=== PATIENT | male | born 1995 | race Caucasian/White ===

== ENCOUNTER → 2020-10-31 13:25 | Outpatient (CLI) | payer OTHER, SELFPAY ==
[2020-10-31 13:55] LABS: COVID19 -Nasal RAPID Negative (Negative)
== END ==
PROVIDERS: PCP Family Medicine; Visit Provider Surgery
DX: Z20.822 Contact with and (suspected) exposure to COVID-19 (principal)
CPT/HCPCS: 87635

== ENCOUNTER 2020-10-31 16:18 | Day surgery (SDC) | payer OTHER, SELFPAY ==
[2020-10-31] VITALS (8 sets, daily range): BP systolic 108–125; BP diastolic 63–84; PULSE 81–98; RESP 14–20; TEMP 36.9–37.8; O2SAT 96–100; BMI 26.4
[2020-10-31] MEDS: LACTATED RINGERS 1,000 ML 42 ML IV (17:08)
--- NOTE | 2020-10-31 17:17 | PM.PREOP ---
Pre-operative Note COVID-19 COVID-19 status: Negative Result date/Date tested (Pos, Neg/Pending): 10/31/20 Interval Note History & Physical reviewed/Exam performed by Physician: Yes Changes to H&P: No
[2020-10-31] MEDS: CLINDAMYCIN 900 MG/50 ML PIGGYBACK 50 MG IV (17:35)
--- NOTE | 2020-10-31 17:58 | SUR.OPER ---
Prone on padded OR bed, head in foam head support, gel chest rolls, gel pad under knees, pillow under lower legs, toes free of pressure, arms secured on padded arm boards at <90 degrees abduction. Safety belt at thigh.
[2020-10-31] MEDS: BUPIVACAINE 0.25% W/ EPI (PF) 10 ML VIAL 20 ML INJ (18:08)
[2020-10-31] MEDS: BUPIVACAINE LIPOSOME 266 MG/20 ML VIAL INJ (18:08)
--- NOTE | 2020-10-31 18:36 | PM.OP.1 ---
Operative Date/Time/Diagnoses Date of procedure: 10/31/20 Time of procedure: 18:36 Pre-op diagnosis: pilonidal cyst with abscess Post-op diagnosis: same (5cm x 8cm x 5cm abscess cavity) Procedure & Clinicians Procedure: Pilonidal cyst excision and debridement, sharp excisional debridement with currette of 5cm x 8cm x 5cm cavity Same procedure as scheduled: Yes Indications: Severe pain, swelling and incomplete drainage of pilonidal cyst with abscess Surgeon: Edna Celis Click Yes if Unassisted: Yes Anesthesia Type: General Operative Notes Findings: 15 x 20cm area of induration involving both buttocks, with central area of pilonidal cyst with 5cm x 8 cm x 5cm area of abscess in the sacrococcygeal midline with purulence and chronic granulation Specimen(s): none sent Estimated Blood Loss (mL): 50 Procedure in detail: The patient was brought into the OR. Sequential compression devices were placed on both legs and turned on. Appropriate perioperative antibiotics were given. General anesthesia was induced and the patient was intubated. The patient was turned prone onto the OR table. All bony prominences were padded. The perianal area was prepped and draped in sterile fashion with betadine prep. Surgical timeout was conducted. A large 15 x 20 cm area of firm induration involving both buttocks, with central area of skin discoloration and fluctuance consistent with pilonidal cyst was seen, with a central open wound consistent with a pilonidal sinus. 0.25% Marcaine with epi was used to infiltrate the entire area. A 6mm biopsy punch was used to core out the open pit and one pit superior to that one. Through these two openings we debrided and irrigated out a large abscess cavity which was about 5cm x 8cm x 5cm beneath the skin. The cyst cavity beneath the skin debrided using curettes, 4 x 4 gauze, and saline irrigation. Hair, pus, and chronic inflammatory granulation tissue was removed, until the cavity was clean. The surgical site was infiltrated with an additional 20 mL of 0.25% Marcaine with epi for a total of 30 mL for the case. 20 mL of Exparel used to infiltrate the surgical wound. The entire wound was then packed with a full 5 yards of quarter-inch iodoform gauze, in 1 long strip. A tail of gauze was left between the two pits. There was good hemostasis at this point. The remaining Betadine was washed off of the skin. A stack of 4x4 gauze was then used to cover the surgical site and secured in place with medipore tape. The patient was transferred onto her hospital bed into supine position. He was then awakened from anesthesia and extubated. Needle, sponge, and instrument counts were correct x 2. The patient was transferred to the PACU in stable condition. Complications: none Post-operative Condition: stable Disposition: PACU
--- NOTE | 2020-10-31 19:31 | SUR.PHASEII ---
Small amount of serosangenous drng shadowing through dressing. Pt with low grade temp. Paper tape and 4x4's sent home with pt for morning drsg change.
== END 2020-10-31 19:25 | disposition home or self-care (01) ==
PROVIDERS: PCP Family Medicine; Referring Provider Surgery; Visit Provider Surgery
PROC: (CPT 10080; principal; 2020-10-31 17:30)
DX: L05.01 Pilonidal cyst with abscess (principal); Z20.822 Contact with and (suspected) exposure to COVID-19
CPT/HCPCS: 10080; 87635; 99214; C9803; C9290; J0330; J1100; J2250; J2405; J2704; J3010

== ENCOUNTER 2020-11-11 10:10 | Inpatient (IN) | payer OTHER, SELFPAY ==
[2020-11-11] VITALS (19 sets, daily range): BP systolic 92–136; BP diastolic 44–75; PULSE 80–113; RESP 11–20; TEMP 36.7–37.9; O2SAT 94–100; BMI 27.1
--- NOTE | 2020-11-11 12:50 | ED_ITS ---
HPI - Wound/Laceration General Chief Complaint: Wound/Laceration Stated Complaint: pain after Cystectomy Time Seen by Provider: 11/11/20 12:13 Source: patient Mode of arrival: Family Vehicle Limitations: no limitations History of Present Illness HPI narrative: Patient is a 25-year-old male who presents after pilonidal cyst removal on 10/31/2028 1. He said that he was doing well however the last couple days he has had increased pain and significant bloody foul-smelling drainage from the site. He denies any fever or chills. Onset (ago): day(s) Related Data Home Medications Medication Instructions Recorded Confirmed ibuprofen 800 mg PO Q8H PRN 10/31/20 10/31/20 Previous Rx's Medication Instructions Recorded docusate sodium 100 mg capsule 100 mg PO BID #20 cap 10/31/20 oxycodone 5 mg tablet 5 mg PO Q6H PRN #30 tab 10/31/20 Allergies Allergy/AdvReac Type Severity Reaction Status Date / Time Penicillins Allergy Severe Anaphylaxis Verified 11/11/20 10:25 Review of Systems Review of Systems Narrative: GENERAL: Denies chills,fever HEENT: Denies throat pain RESPIRATORY: Denies dyspnea, cough, wheezing CARDIOVASCULAR: Denies chest pain, palpitations GASTROINTESTINAL: Denies nausea, vomiting MUSCULOSKELETAL: Denies extremity pain, injury SKIN: See HPI NEUROLOGIC: Denies weakness, dizziness, headache, numbness 8 point review of systems is negative except for those stated above and HPI Patient History Surgical History History of surgical removal of pilonidal cyst Social History marital status: household members: spouse and children occupational status: employed Smoking Status: Former smoker alcohol intake: former substance use type: does not use Smoking Status: Current some day smoker alcohol intake frequency: 0-2 drinks per day Substance Use Type: does not use Exam Initial Vital Signs Initial Vital Signs: Vital Signs Temperature 98.1 F 11/11/20 10:26 Pulse Rate 110 H 11/11/20 10:26 Respiratory Rate 18 11/11/20 10:26 Blood Pressure 113/64 11/11/20 10:26 Pulse Oximetry 98 11/11/20 10:26 GENERAL: A 25-year-old male appears in severe pain whenever he moves. CARDIOVASCULAR: peripheral pulses in tact, cap refill <2 sec RESPIRATORY: No respiratory distress, speaks in full sentences without difficulty EXTREMITIES: Normal range of motion, no clubbing or edema. Neurovascularly inta ct NEUROLOGICAL: Cranial nerves II through XII grossly intact. Normal gait and speech. SKIN: Right buttock incision site noted large copious amounts of foul-smelling bloody discharge. Exquisitely tender mild erythema Course Orders Ordered: ED Orders 11/11/20 13:08 Wound Culture and Gram Stain Stat 11/11/20 13:25 CHEM7 [Basic Metabolic Panel] Stat COVID19 -Nasal swab/Pre-Proc Stat Complete Blood Count AUTO DIFF Stat Lactate (Lactic Acid) Stat 11/11/20 13:30 Blood Culture Stat Acetaminophen (Acetaminophen 325 Mg Tablet) 650 mg PO Q6HR PRN PRN Reason: Pain, Mild (1-3) Celecoxib (Celecoxib 200 Mg Capsule) 200 mg PO BID PRN PRN Reason: Pain, Moderate (4-6) Diphenhydramine HCl (Diphenhydramine 50 Mg/Ml Vial) 25 mg IV Q6HR PRN PRN Reason: Itching Docusate Sodium (Docusate 100 Mg Capsule) 100 mg PO BID PRN PRN Reason: Constipation Gabapentin (Gabapentin 300 Mg Capsule) 300 mg PO BID BIN Heparin Sodium (Porcine) (Heparin 5,000 Unit/Ml Vial) 5,000 unit SUBCUT BID BIN Hydromorphone HCl (Hydromorphone 2 Mg Tablet) 2 mg PO Q6HR PRN PRN Reason: Pain, Severe (7-10) Last Admin: 11/11/20 18:00 Dose: 2 mg Documented by: LUKAS Lactated Ringer's (Lactated Ringers) 1,000 mls @ 125 mls/hr IV CONT BIN Last Admin: 11/11/20 17:51 Dose: 125 mls/hr Documented by: LUKAS Naloxone HCl (Naloxone 0.4 Mg/Ml Vial) 0.2 mg IV Q2MIN PRN PRN Reason: Opiate Reversal Ondansetron HCl (Ondansetron 4 Mg/2 Ml Inj) 4 mg IV Q4HR PRN PRN Reason: Nausea And Vomiting Oxycodone/Acetaminophen (Oxycodone/Acetaminophen 5/325 Tablet) 2 tab PO Q6HR PRN PRN Reason: Pain, Severe (7-10) Discontinued Medications Bupivacaine HCl/Epinephrine Bitart (Bupivacaine 0.25% W/ Epi 30 Ml Vial) 30 ml INJ NOW ONE Stop: 11/11/20 15:49 Last Admin: 11/11/20 15:48 Dose: 20 ml Documented by: LUIS Fentanyl (Fentanyl 100 Mcg/2 Ml Inj) 50 mcg IV PRN PRN PRN Reason: Pain, Moderate (4-6) Last Admin: 11/11/20 14:44 Dose: 50 mcg Documented by: MIGUEL ANGEL Admin: 11/11/20 14:32 Dose: 50 mcg Documented by: MIGUEL ANGEL Fentanyl (Fentanyl 100 Mcg/2 Ml Inj) 0 mcg IV Q5M PRN PRN Reason: Pain, Moderate (4-6) Last Admin: 11/11/20 16:08 Dose: 50 mcg Documented by: MIGUEL ANGEL Admin: 11/11/20 16:03 Dose: 50 mcg Documented by: MIGUEL ANGEL Hydromorphone HCl (Hydromorphone 2 Mg Inj) 0 mg IV Q5M PRN PRN Reason: Pain, Moderate (4-6) Last Admin: 11/11/20 16:20 Dose: 1 mg Documented by: MIGUEL ANGEL Admin: 11/11/20 16:15 Dose: 0.5 mg Documented by: MIGUEL ANGEL Lactated Ringer's (Lactated Ringers) 1,000 mls @ 100 mls/hr IV NOW ONE Stop: 11/12/20 00:33 Last Admin: 11/11/20 15:30 Dose: 100 mls/hr Documented by: Infusion: 11/11/20 15:30 Dose: 100 mls/hr Documented by: Admin: 11/11/20 14:34 Dose: 100 mls/hr Documented by: MIGUEL ANGEL Morphine Sulfate (Morphine 4 Mg/Ml Inj) 4 mg IV NOW ONE Stop: 11/11/20 13:06 Last Admin: 11/11/20 13:32 Dose: 4 mg Documented by: FABIAN Ondansetron HCl (Ondansetron 4 Mg/2 Ml Inj) 4 mg IV NOW ONE Stop: 11/11/20 13:29 Last Admin: 11/11/20 13:32 Dose: 4 mg Documented by: FABIAN Oxycodone HCl (Oxycodone Ir 5 Mg Tablet) 5 mg PO PACUNOW PRN PRN Reason: Mild or moderate pain Last Admin: 11/11/20 16:20 Dose: 5 mg Documented by: MIGUEL ANGEL Vital Signs Vital signs: Vital Signs - 8 hr 11/11/20 10:26 11/11/20 12:33 11/11/20 12:34 Temperature 98.1 F Pulse Rate 110 H 93 H 89 Respiratory Rate 18 Blood Pressure 113/64 107/67 Pulse Oximetry 98 100 100 11/11/20 13:37 11/11/20 14:00 Temperature Pulse Rate 88 96 H Respiratory Rate Blood Pressure 110/67 104/57 L Pulse Oximetry 98 94 MDM - Wound/Laceration Lab Data Attestation: I reviewed the patient's lab results. Result diagrams: 11/11/20 13:25 11/11/20 13:25 Labs: Lab Results 11/11/20 11/11/20 11/11/20 Range/Units 13:25 13:25 13:25 WBC 16.1 H (4.5-11.0) X10^3/uL RBC 4.46 L (4.5-5.9) X10^6/uL Hgb 13.5 (13.5-17.5) g/dL Hct 40.8 L (41-53) % MCV 91.5 (80-100) fL MCH 30.2 (26-34) PG MCHC 33.0 (30-36) % RDW 13.1 (11.6-14.8) % Plt Count 383 (150-400) X10^3/uL Neut % (Auto) 76.6 H (50-75) % Lymph % (Auto) 14.4 L (25-40) % [place] % (Auto) 7.7 (3-14) % Eos % (Auto) 0.9 L (2-4) % Baso % (Auto) 0.4 (0-2) % Neut # (Auto) 91851 H (2294-1303) /uL Lymph # (Auto) 2300 (1240-6025) /uL [place] # (Auto) 1200 H (0-900) /uL Eos # (Auto) 100 (0-450) /uL Baso # (Auto) 100 (0-100) /uL Sodium 138 (137-145) mmol/L Potassium 3.3 L (3.4-5.1) mmol/L Chloride 106 (98-107) mmol/L Carbon Dioxide 23 (22-32) mmol/L BUN 11 (9-20) mg/dL Creatinine 0.96 (0.66-1.25) mg/dL Estimated GFR > 60.0 (>60) mL/min BUN/Creatinine Ratio 11.5 (6-22) Glucose 92 (70-100) mg/dL Lactate 1.0 (0.7-2.1) mmol/L Calcium 9.6 (8.4-10.2) mg/dL SARS-CoV-2 (PCR) (Negative) 11/11/20 Range/Units 13:25 WBC (4.5-11.0) X10^3/uL RBC (4.5-5.9) X10^6/uL Hgb (13.5-17.5) g/dL Hct (41-53) % MCV (80-100) fL MCH (26-34) PG MCHC (30-36) % RDW (11.6-14.8) % Plt Count (150-400) X10^3/uL Neut % (Auto) (50-75) % Lymph % (Auto) (25-40) % [place] % (Auto) (3-14) % Eos % (Auto) (2-4) % Baso % (Auto) (0-2) % Neut # (Auto) (4191-7062) /uL Lymph # (Auto) (3101-2314) /uL [place] # (Auto) (0-900) /uL Eos # (Auto) (0-450) /uL Baso # (Auto) (0-100) /uL Sodium (137-145) mmol/L Potassium (3.4-5.1) mmol/L Chloride (98-107) mmol/L Carbon Dioxide (22-32) mmol/L BUN (9-20) mg/dL Creatinine (0.66-1.25) mg/dL Estimated GFR (>60) mL/min BUN/Creatinine Ratio (6-22) Glucose (70-100) mg/dL Lactate (0.7-2.1) mmol/L Calcium (8.4-10.2) mg/dL SARS-CoV-2 (PCR) Negative (Negative) [facility] decision making narrative: Wound culture is pending. Patient is found have leukocytosis of 16,000 but is afebrile. Patient is also mildly tachycardic. Pain improved with morphine. I did speak with the and updated her. Dr. Cameron updated on patient's symptoms and test results states she will take patient to the OR for repeat drainage. Discharge Plan Departure Patient Disposition: Admitted to Surgery Clinical Impression: Pilonidal abscess Admit Date/Time: 11/11/20 14:11 Admit Provider: Marjorie Cameron
[2020-11-11] MEDS: MORPHINE 4 MG/ML INJ IV (13:32)
[2020-11-11] MEDS: ONDANSETRON 4 MG/2 ML INJ IV (13:32)
[2020-11-11 13:34] LABS: Add Manual Diff / Slide Review NO; Basophils Absolute Auto 100 /uL (0-100); Basophils Percent Auto 0.4 % (0-2); Eosinophils Absolute Auto 100 /uL (0-450); Eosinophils Percent Auto 0.9 % (2-4); Hematocrit 40.8 % (41-53); Hemoglobin 13.5 g/dL (13.5-17.5); Lymphocytes Absolute Auto 2300 /uL (1100-4500); Lymphocytes Percent Auto 14.4 % (25-40); Mean Corpuscular Hemoglobin 30.2 PG (26-34); Mean Corpuscular Volume 91.5 fL (80-100); Monocytes Absolute Auto 1200 /uL (0-900); Monocytes Percent Auto 7.7 % (3-14); Neutrophils Absolute Auto 12400 /uL (1500-7000); Neutrophils Percent Auto 76.6 % (50-75); Platelet Count 383 X10^3/uL (150-400); Red Blood Cell Count 4.46 X10^6/uL (4.5-5.9); Red Cell Distribution Width 13.1 % (11.6-14.8); White Blood Cell Count 16.1 X10^3/uL (4.5-11.0)
[2020-11-11 13:46] LABS: BUN Creatinine Ratio 11.5 (6-22); Blood Urea Nitrogen 11 mg/dL (9-20); Calcium 9.6 mg/dL (8.4-10.2); Carbon Dioxide 23 mmol/L (22-32); Chloride 106 mmol/L (98-107); Estimated Glomerular Filt Rate > 60.0 mL/min (>60); Glucose 92 mg/dL (70-100); HEMOLYSIS < 15 (0-50); Potassium 3.3 mmol/L (3.4-5.1); Sodium 138 mmol/L (137-145)
[2020-11-11 13:54] LABS: COVID19 -Nasal RAPID Negative (Negative)
[2020-11-11] MEDS: fentaNYL 100 MCG/2 ML INJ 50 MCG IV ×2 (14:32→14:44)
[2020-11-11] MEDS: LACTATED RINGERS 1,000 ML 100 ML IV ×2 (14:34→15:30)
--- NOTE | 2020-11-11 14:59 | SUR.OPER ---
Lateral on padded OR bed, head on pillow, gel axillary roll in place, bottom leg bent with gel pad under knee to foot, upper leg straight and supported with pillows. Upper arm supported by pillows and secured over bottom arm to padded arm board. Safety belt at hip, tape over blanket lower legs.
--- NOTE | 2020-11-11 15:04 | P.HP_ITS ---
History of Present Illness History of Present Illness Date Patient Seen: 11/11/20 Time Patient Seen: 15:04 Date of Onset of Symptoms: 11/07/20 Chief complaint: pain after Cystectomy Narrative: infected pilonidal cyst repair (10/31/20). Patient had increasing pain, fever and spontaneous drainage of pus. Was not on any antibiotics. Patient History Family & Social History Social History: household members spouse,children Safety & Behavioral: Feels Safe in Current Yes Environment Been Physically Hurt or No Threatened By a Person Tobacco & Substance use: Tobacco type cigars Smoking Status Current some day smoker alcohol intake never alcohol intake frequency 0-2 drinks per day Substance Use Type does not use Meds Home Medications and Allergies Home Medications Medication Instructions Recorded Confirmed Type docusate sodium 100 mg capsule 100 mg PO BID #20 cap 10/31/20 10/31/20 Rx ibuprofen 800 mg PO Q8H PRN 10/31/20 10/31/20 History oxycodone 5 mg tablet 5 mg PO Q6H PRN #30 tab 10/31/20 10/31/20 Rx Allergies Allergy/AdvReac Type Severity Reaction Status Date / Time Penicillins Allergy Severe Anaphylaxis Verified 11/11/20 10:25 Review of Systems Review of Systems Narrative: post op pain, spontaneous drainage. ROS: Yes All systems reviewed with the patient and are negative except as otherwise documented Exam Vital Signs (past 8 hours): - 11/11/20 10:26 11/11/20 12:33 11/11/20 12:34 Temperature 98.1 F Pulse Rate 110 H 93 H 89 Respiratory Rate 18 Blood Pressure 113/64 107/67 Pulse Oximetry 98 100 100 11/11/20 13:37 11/11/20 14:00 11/11/20 14:37 Temperature 99.8 F H Pulse Rate 88 96 H 91 H Respiratory Rate 16 Blood Pressure 110/67 104/57 L 95/60 Pulse Oximetry 98 94 100 Oxygen Delivery Method Room Air [facility] Head: normal to inspection, normocephalic and atraumatic Eyes Conjunctivae: conjunctivae normal Sclera: sclerae normal Neck Neck: trachea midline Chest Chest: normal inspection of the chest Resp Effort & Inspection: normal respiratory effort and able to speak in complete sentences Cardio Rate: regular rate Rhythm: regular rhythm GI Inspection: normal to inspection Palpation: soft Neuro General: patient alert and patient oriented x3 Cognition: normal cognition Extrem General: normal to inspection and full ROM Psych Affect: normal affect Judgment: judgment good Other: bulging and draining pilonidal cyst surgical site. Objective Labs Result Diagrams: 11/11/20 13:25 11/11/20 13:25 Labs: Laboratory Results - last 24 hr 11/11/20 11/11/20 11/11/20 13:25 13:25 13:25 WBC 16.1 H RBC 4.46 L Hgb 13.5 Hct 40.8 L MCV 91.5 MCH 30.2 MCHC 33.0 RDW 13.1 Plt Count 383 Neut % (Auto) 76.6 H Lymph % (Auto) 14.4 L [place] % (Auto) 7.7 Eos % (Auto) 0.9 L Baso % (Auto) 0.4 Neut # (Auto) 93629 H Lymph # (Auto) 2300 [place] # (Auto) 1200 H Eos # (Auto) 100 Baso # (Auto) 100 Sodium 138 Potassium 3.3 L Chloride 106 Carbon Dioxide 23 BUN 11 Creatinine 0.96 Estimated GFR > 60.0 BUN/Creatinine Ratio 11.5 Glucose 92 Lactate 1.0 Calcium 9.6 SARS-CoV-2 (PCR) 11/11/20 13:25 WBC RBC Hgb Hct MCV MCH MCHC RDW Plt Count Neut % (Auto) Lymph % (Auto) [place] % (Auto) Eos % (Auto) Baso % (Auto) Neut # (Auto) Lymph # (Auto) [place] # (Auto) Eos # (Auto) Baso # (Auto) Sodium Potassium Chloride Carbon Dioxide BUN Creatinine Estimated GFR BUN/Creatinine Ratio Glucose Lactate Calcium SARS-CoV-2 (PCR) Negative
[2020-11-11] MEDS: BUPIVACAINE 0.25% W/ EPI 30 ML VIAL INJ (15:48)
[2020-11-11] MEDS: fentaNYL 100 MCG/2 ML INJ IV ×2 (16:03→16:08)
[2020-11-11] MEDS: HYDROMORPHONE 2 MG INJ IV ×2 (16:15→16:20)
--- NOTE | 2020-11-11 16:15 | PM.OP.1 ---
Operative Date/Time/Diagnoses Date of procedure: 11/11/20 Time of procedure: 16:15 Pre-op diagnosis: infected pilonidal cyst Post-op diagnosis: same Procedure & Clinicians Procedure: Incision and drainage of infected pilonidal cyst with negative pressure dressing placed Same procedure as scheduled: Yes Surgeon: Marjorie Cameron Click Yes if Unassisted: Yes Anesthesia Type: General Operative Notes Findings: large bilateral cavities from pilonidal abscess Closure Type: non-primary Specimen(s): none sent Prosthetic devices, grafts, tissues, transplants, or devices: wound vac Estimated Blood Loss (mL): 20 Blood products transfused: none Procedure in detail: prep diagnosis: Infected pilonidal cyst Postop diagnosis: Same Operative procedure: Incision and drainage of pilonidal cyst, placement of negative pressure wound VAC system Surgeon: Isidra Cameron MD Findings: Multiple spontaneously draining openings in the crevice of the buttocks. Hard fluctuant areas bilaterally. This opened up into as anticipated to large abscess cavities on either side of the gluteal crease. Anesthetic: General with LMA intubation along with local Procedure: Patient placed in a lateral position. Area was shaved. A good portion of the remaining purulent material was expressed prior to incision along the crease creating a Y to the left lateral buttocks. Area was bluntly debrided with septations broken down. Hemostasis achieved with electrocautery and compression. Wound cavity measures approximately 10 cm x 12 cm by 2 cm deep. Skin and subcutaneous tissue only. No bone exposed. Black sponge was placed into the defect. There were 3 sponges total. The negative pressure dressing was placed across that with a good seal. Patient was awakened, extubated, taken to recovery room in stable condition. Needle, sponge, and instrument counts were correct. Blood loss: 20 mL Specimen: None Complications: none
[2020-11-11] MEDS: OXYCODONE IR 5 MG TABLET PO (16:20)
[2020-11-11] MEDS: LACTATED RINGERS 1,000 ML 125 ML IV (17:51)
[2020-11-11] MEDS: HYDROMORPHONE 2 MG TABLET PO ×2 (18:00→21:59)
--- NOTE | 2020-11-11 18:06 | PC.NURSE ---
Addendum entered by Chasity Marie R.N. 11/11/20 22:27: Per Dr. Cameron, no antibiotics intentionally ordered for this patient. Awaiting wound culture. Addendum entered by Chasity Marie R.N. 11/11/20 22:06: Wound vac to 125 mmHg remains intact and functional. Collection device with serosang fluid. Dressing intact to buttocks. Erythema and edema to buttocks is visible. 2 mg po dilaudid administered for pain. Addendum entered by Chasity Marie R.N. 11/11/20 21:40: Pt reports pain to buttocks 6/10 after standing to void. States pain doesn't really improve with rest after pt was allowed to lie quietly in bed for 30 minutes post standing at bedside. Discussion with pt who states dilaudid did work well for a short period of time, but pt does not feel as though can manage until next dose @ midnight. Again, pt prefers to continue with dilaudid at this time as it did provide relief. Dr. Cameron was contacted via telephone and this was discussed. Orders received to change frequency of dilaudid. Addendum entered by Chasity Marie R.N. 11/11/20 19:14: Stood with assistance at side of bed to void. Dressing to buttocks remains intact. Returned to bed and reports increasing pain, burning, discomfort to buttocks. Administered celebrex and tylenol as per emar. Pt prefers left side lying positioning in bed. Will continue to monitor for pain relief and management. BL calf scd's replaced. Original Note: Pt to room 211 from PACU awake, alert, conversant. Wound vac intact and in place to buttocks. Foam with tegaderm to buttocks with wound vac draining serosang fluid. Discussion with pt re pain and pt reports has dealt with profound and intense pain and wishes to not experience any more of this. After review of pain medications available to pt, pt elects to have dilaudid po to manage pain 4-5/10 and climbing. BL calf scd's in place. Pt given soft diet per request....yogurt, pudding, po fluids. Denies nausea. Pt prefers left lying positioning in bed. Oriented to call light and use encouraged for needs.
[2020-11-11] MEDS: ACETAMINOPHEN 325 MG TABLET 650 MG PO (18:47)
[2020-11-11] MEDS: CELECOXIB 200 MG CAPSULE PO (18:47)
[2020-11-11 19:57] LABS: Add Manual Diff / Slide Review NO; Basophils Absolute Auto 100 /uL (0-100); Basophils Percent Auto 0.4 % (0-2); Eosinophils Absolute Auto 100 /uL (0-450); Hematocrit 34.6 % (41-53); Hemoglobin 11.5 g/dL (13.5-17.5); Lymphocytes Absolute Auto 2300 /uL (1100-4500); Lymphocytes Percent Auto 15.2 % (25-40); Mean Corpuscular HGB Conc 33.4 % (30-36); Mean Corpuscular Hemoglobin 30.3 PG (26-34); Mean Corpuscular Volume 90.8 fL (80-100); Monocytes Absolute Auto 1300 /uL (0-900); Monocytes Percent Auto 8.9 % (3-14); Neutrophils Absolute Auto 11100 /uL (1500-7000); Neutrophils Percent Auto 74.5 % (50-75); Platelet Count 304 X10^3/uL (150-400); Red Blood Cell Count 3.81 X10^6/uL (4.5-5.9); Red Cell Distribution Width 12.7 % (11.6-14.8); White Blood Cell Count 14.9 X10^3/uL (4.5-11.0)
[2020-11-11] MEDS: DOCUSATE 100 MG CAPSULE PO (20:51)
[2020-11-11] MEDS: GABAPENTIN 300 MG CAPSULE PO (20:51)
[2020-11-12] VITALS (8 sets, daily range): BP systolic 91–138; BP diastolic 55–65; PULSE 68–95; RESP 15–18; TEMP 36.7–37.3; O2SAT 96–100
[2020-11-12] MEDS: OXYCODONE/ACETAMINOPHEN 5/325 TABLET 2 TAB PO ×2 (00:56→06:31)
--- NOTE | 2020-11-12 01:27 | PC.NURSE ---
Addendum entered by Bianca George R.N. 11/12/20 02:56: States pain has improved but still wanting additional pain meds for 5/10 pain and insists on taking po Dilaudid. Original Note: patient is alert and oriented. Breath sounds CTA with RA sat of 100%. HRR. Denies nausea. BT present and abdomen is soft; reports having passed flatus since surgery. Has not had a BM since 11/08; received Colace on previous shift. Denies dysuria, frequency or urgency with urination. Up at edge of bed with SBA to use urinal. Is moving himself in bed. Wound vac intact to 125mmHg. Complains of 7/10 sharp, burning pain so was medicated with Percocet as too early to repeat Dilaudid. Fall risk score is low. Declines to have HOB elevated to 30 degrees as is most comfortable lying prone. Placed on contact isolation as wound culture is showing gram + cocci on gram stain; patient verbalizes understanding.
[2020-11-12] MEDS: HYDROMORPHONE 2 MG TABLET PO ×2 (02:51→07:34)
[2020-11-12] MEDS: LACTATED RINGERS 1,000 ML 125 ML IV ×3 (02:53→20:41)
[2020-11-12] MEDS: CELECOXIB 200 MG CAPSULE PO ×2 (04:20→18:41)
--- NOTE | 2020-11-12 04:23 | PC.NURSE ---
0415 patient complaining of back pain 6/10 pain, at site of surgery. Medicated with Celecoxib 200 mg. Will notify Primary RNBianca of medication administration.
[2020-11-12] MEDS: HEPARIN 5,000 UNIT/ML VIAL 5000 UNIT SUBCUT ×2 (08:32→20:31)
[2020-11-12] MEDS: GABAPENTIN 300 MG CAPSULE PO ×2 (08:32→20:31)
--- NOTE | 2020-11-12 10:16 | CM.DANOTE ---
Addendum entered by Mirella Leger LPN 11/12/20 10:18: Case received, discussed in Team Rounds and then EMR reviewed. Dr. Cameron was here earlier today, her note is not yet available. Met with pt now and introduced self and role. 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 He admitted yesterday afternoon to care of [facility]: Dr. Joao Cameron and was taken to OR for I&D of infected pilonidal cyst and a negative pressure wound vac was placed during the surgical process. Pt was here on 10/31 for outpt surgery for initial I&D of this cyst and admitted now after increasing pain and foul drainage s/p that surgery. There is no clear documentation from surgeon yet on the post d/c plan as relates to the Wound vac. Pt reports that she told him he would need this after d/c and that he would either be going to the [facility] or someone would come to my home. Payer: Yury Clarke. Admission status: in review: per JUAN Kohler PCP: [facility]: he states this is under commander Goddard but there are several providers. He wants to make sure his records go to the clinic and says he will discuss this with Dr. Cameron. DCP: home setting: unclear yet on post d/c IV antibiotics and post d/c Wound vac plan. Original Note: Discharge Planning/Care Management DCP: assessment: CM Discharge Assessment Start: 11/12/20 10:13 Freq: Status: Active Protocol: Document 11/12/20 10:13 ITV (Rec: 11/12/20 10:16 ITV [id number]) Discharge Planning Assessment Advance Directives? No History Provided By Patient,Medical Record Comment OUTPT Surgery 10/31/[address] Celis for I&D of pilonidal cyst Prior Living Arrangements Apartment/Condo Household Members spouse,children Type of transporation used prior to Drives own vehicle admit Independent with ADL's Yes Is patient alert and oriented? Yes Review Status In Process Document 11/12/20 10:16 ITV (Rec: 11/12/20 10:16 ITV [id number]) Discharge Planning Assessment Advance Directives? No History Provided By Patient,Medical Record Comment OUTPT Surgery 10/31/[address] Celis for I&D of pilonidal cyst Prior Living Arrangements Apartment/Condo Household Members spouse,children Type of transporation used prior to Drives own vehicle admit Independent with ADL's Yes Is patient alert and oriented? Yes Whiteboard Updated in Patient Room with Yes name and ext. # of Fur Finisher Review Status In Process
[2020-11-12] MEDS: fentaNYL 50 MCG/PATCH TOP (10:35)
[2020-11-12] MEDS: ALPRAZolam 0.25 MG TABLET 0.5 MG PO (10:38)
--- NOTE | 2020-11-12 11:37 | PM.PNPO.1 ---
Subjective Subjective Date Patient Seen: 11/12/20 Interval history: having pain issues Exam Vital Signs (past 8 hours): - 11/12/20 04:43 11/12/20 07:50 11/12/20 08:15 Temperature 98.0 F 98.3 F Pulse Rate 78 74 Respiratory Rate 18 15 Blood Pressure 97/58 L 91/56 L Pulse Oximetry 99 96 96 Oxygen Delivery Method Room Air Oxygen Flow Rate 0 Narrative Exam Narrative: wound vac intact. decreased surrounding enduration Objective Labs Result Diagrams: 11/11/20 19:44 11/11/20 13:25 Labs: Laboratory Results - last 24 hr 11/11/20 11/11/20 11/11/20 13:25 13:25 13:25 WBC 16.1 H RBC 4.46 L Hgb 13.5 Hct 40.8 L MCV 91.5 MCH 30.2 MCHC 33.0 RDW 13.1 Plt Count 383 Neut % (Auto) 76.6 H Lymph % (Auto) 14.4 L [place] % (Auto) 7.7 Eos % (Auto) 0.9 L Baso % (Auto) 0.4 Neut # (Auto) 13797 H Lymph # (Auto) 2300 [place] # (Auto) 1200 H Eos # (Auto) 100 Baso # (Auto) 100 Sodium 138 Potassium 3.3 L Chloride 106 Carbon Dioxide 23 BUN 11 Creatinine 0.96 Estimated GFR > 60.0 BUN/Creatinine Ratio 11.5 Glucose 92 Lactate 1.0 Calcium 9.6 SARS-CoV-2 (PCR) 11/11/20 11/11/20 13:25 19:44 WBC 14.9 H RBC 3.81 L Hgb 11.5 L Hct 34.6 L MCV 90.8 MCH 30.3 MCHC 33.4 RDW 12.7 Plt Count 304 Neut % (Auto) 74.5 Lymph % (Auto) 15.2 L [place] % (Auto) 8.9 Eos % (Auto) 1.0 L Baso % (Auto) 0.4 Neut # (Auto) 90962 H Lymph # (Auto) 2300 [place] # (Auto) 1300 H Eos # (Auto) 100 Baso # (Auto) 100 Sodium Potassium Chloride Carbon Dioxide BUN Creatinine Estimated GFR BUN/Creatinine Ratio Glucose Lactate Calcium SARS-CoV-2 (PCR) Negative [facility] Surgical History History of surgical removal of pilonidal cyst Social History marital status: household members: spouse and children occupational status: employed Smoking Status: Current some day smoker alcohol intake: former substance use type: does not use Assessment & Plan Post-op Postoperative Procedures: Procedures Operation Date: 11/11/20 15:00 Actual Procedures Side Surgeon p I&D pilonidal cyst Bilateral Marjorie Cameron MD Postoperative day: 1 Postoperative status: doing well Postoperative status narrative: WBC remains elevated, pain an issue Start Clindamycin pop. Fentanyl patch and xanax. stopped IV dilaudid. arrange for wound vac upon discharge. Quality VTE Deep Vein Thrombosis/Pulmonary Embolism Present on Admission: No
--- NOTE | 2020-11-12 12:00 | PC.NURSE ---
Addendum entered by Norma Moya R.N. 11/12/20 14:29: During the conversation I did inform Dr. Cameron that pt's VAC drsg has a slow leak that is dependent on his positioning, and when attempted to reinforce, pt screamed out in pain and appeared to be crying. Pain decreased immediately after relieving pressure at site. Was unable to reinforce drsg, provider made aware. Original Note: Called and spoke with Dr. Cameron regarding pt's pain control medications. Informed her of concerns with 50mcg fetanyl patch after talking with charge nurse and pharmacist. Per Dr. Cameron, she is comfortable with the 50mcg fetanyl patch and is okay with medicating with current prescription of percocet if needed for breakthrough pain. She instructed that we can give 1 tab of percocet if pt's heart rate is above 90's and requires breakthrough pain medication. Informed pharmacist and charge nurse of conversation. Continuous pulse oximeter placed per nurse's discretion.
[2020-11-12] MEDS: CLINDAMYCIN 150 MG CAPSULE 300 MG PO ×2 (13:39→22:22)
[2020-11-12] MEDS: OXYCODONE/ACETAMINOPHEN 5/325 TABLET 1 TAB PO (14:42)
--- NOTE | 2020-11-12 15:35 | PC.NURSE ---
Called Dr. Cameron, informed her of no lab draw this am to eval WBC count and potassium results, reminded her of potassium level of 3.3 yesterday. Verbal order placed for CBC for tomorrow am and daily. She reported not being concerned with potassium level.
--- NOTE | 2020-11-12 23:18 | PC.NURSE ---
pt's wound vac at 125mmhg continuous, wound vac did beep once due to leak but started to suction again when patient repositioned. There was some slow leak to the bed, provider aware of this according to day shift RN. I reinforce the dressing with tegaderm. erythema and swelling around the site. pt's pain is tolerable now when he is laying in bed. he even refused his tylenol. still very painful when he gets up and moves around.
[2020-11-13] VITALS (9 sets, daily range): BP systolic 94–152; BP diastolic 46–81; PULSE 65–86; RESP 14–20; TEMP 36.3–37.3; O2SAT 95–99
[2020-11-13] MEDS: OXYCODONE/ACETAMINOPHEN 5/325 TABLET 1 TAB PO ×3 (01:27→18:58)
--- NOTE | 2020-11-13 01:45 | PC.NURSE ---
Addendum entered by Bianca George R.N. 11/13/20 06:43: Called staff to room and states he is having scratchy throat with burning discomfort going down to stomach; states it feels like something is lodged in my throat. Denies SOB. No diaphoresis. No radiation of pain. BP 115/66 with HR of 72. RA sat is 99%. Breath sounds with expiratory rhonchi. HOB elevated and encouraged to cough and produced clear mucous. States it tastes like some of my medication; had received Clindamycin and Colace at 0539. Provided with some milk and states discomfort is starting to subside and feels like he is breathing better. Addendum entered by Bianca George R.N. 11/13/20 05:06: States pain is again at 6/10 so medicated with Celebrex and is also requesting/medicated with Xanax. CERTIFIED NURSE PRACTITIONER assisting patient to bathe and then will provide ice pack to help ease pain. Original Note: Patient asleep since start of shift but now called as having increasing pain. Requested/medicated with Percocet. States pain is 5/10 at rest and 7/10 with movement but still way better than last night and is moving much easier tonight. Is alert and oriented. Breath sounds CTA with RA sat of 97%. HRR. Denies nausea. BT present and is passing flatus but has not had BM since 11/08. Is urinating without dysuria; urine is clear, light yellow. Able to move self in bed but still needing SBA when out of bed in order to manage tubes. Wound vac to buttock intact and 125mmHg and no leakage noted at this time. Fall risk score is low.
[2020-11-13] MEDS: LACTATED RINGERS 1,000 ML 125 ML IV (04:59)
[2020-11-13] MEDS: CELECOXIB 200 MG CAPSULE PO (05:03)
[2020-11-13] MEDS: ALPRAZolam 0.25 MG TABLET 0.5 MG PO (05:03)
[2020-11-13] MEDS: CLINDAMYCIN 150 MG CAPSULE 300 MG PO (05:39)
[2020-11-13] MEDS: DOCUSATE 100 MG CAPSULE PO (05:40)
[2020-11-13 05:55] LABS: Add Manual Diff / Slide Review NO; Basophils Absolute Auto 0 /uL (0-100); Basophils Percent Auto 0.5 % (0-2); Eosinophils Absolute Auto 200 /uL (0-450); Hematocrit 36.6 % (41-53); Hemoglobin 12.1 g/dL (13.5-17.5); Lymphocytes Absolute Auto 2300 /uL (1100-4500); Lymphocytes Percent Auto 28.6 % (25-40); Mean Corpuscular HGB Conc 33.2 % (30-36); Mean Corpuscular Hemoglobin 30.6 PG (26-34); Mean Corpuscular Volume 92.1 fL (80-100); Monocytes Absolute Auto 900 /uL (0-900); Monocytes Percent Auto 11.1 % (3-14); Neutrophils Absolute Auto 4700 /uL (1500-7000); Neutrophils Percent Auto 57.8 % (50-75); Platelet Count 310 X10^3/uL (150-400); Red Blood Cell Count 3.97 X10^6/uL (4.5-5.9); Red Cell Distribution Width 12.7 % (11.6-14.8); White Blood Cell Count 8.2 X10^3/uL (4.5-11.0)
--- NOTE | 2020-11-13 07:50 | PM.PNPO.1 ---
Subjective Subjective Date Patient Seen: 11/13/20 Time Patient Seen: 07:50 Interval history: Subjectively pain control is issue when manipulating dressing. Discussed with nurse using objective pain indicators. Needs discharge with wound vac. will complete 5 days of po antibiotics as treatment as well. Exam Vital Signs (past 8 hours): - 11/13/20 01:41 11/13/20 05:30 Temperature 97.3 F L 98.3 F Pulse Rate 73 65 Respiratory Rate 14 20 Blood Pressure 109/55 L 104/52 L Pulse Oximetry 97 99 Oxygen Delivery Method Room Air Oxygen Flow Rate 0 Narrative Exam Narrative: unchanged. Wound vac functioning. Normal WBC, no fever Objective Labs Result Diagrams: 11/13/20 05:40 11/11/20 13:25 Labs: Laboratory Results - last 24 hr 11/13/20 05:40 WBC 8.2 RBC 3.97 L Hgb 12.1 L Hct 36.6 L MCV 92.1 MCH 30.6 MCHC 33.2 RDW 12.7 Plt Count 310 Neut % (Auto) 57.8 Lymph % (Auto) 28.6 [place] % (Auto) 11.1 Eos % (Auto) 2.0 Baso % (Auto) 0.5 Neut # (Auto) 4700 Lymph # (Auto) 2300 [place] # (Auto) 900 Eos # (Auto) 200 Baso # (Auto) 0 PFSH Surgical History History of surgical removal of pilonidal cyst Social History marital status: household members: spouse and children occupational status: employed Smoking Status: Current some day smoker alcohol intake: former substance use type: does not use Assessment & Plan Post-op Postoperative Procedures: Procedures Operation Date: 11/11/20 15:00 Actual Procedures Side Surgeon p I&D pilonidal cyst Bilateral Marjorie Cameron MD Postoperative day: 2 Postoperative status: doing well Postoperative status narrative: comfort is the main issue. Infection has been addressed. Postoperative plan narrative: Needs disposition with wound vac. Wound vac due to be change Saturday or Saturday. Options (to my knowledge) is VNS with wound care vs. outpatient wound clinic. metal flow coordinator will address. Ok to discharge is arrangements have been made for home wound vac. Quality VTE Deep Vein Thrombosis/Pulmonary Embolism Present on Admission: No
--- NOTE | 2020-11-13 08:53 | P.PN_ITS ---
Subjective Subjective Date Patient Seen: 11/13/20 Interval history: Patient feeling better Exam Vital Signs (past 8 hours): - 11/13/20 01:41 11/13/20 05:30 11/13/20 07:45 Temperature 97.3 F L 98.3 F Pulse Rate 73 65 Respiratory Rate 14 20 Blood Pressure 109/55 L 104/52 L Pulse Oximetry 97 99 98 11/13/20 08:19 Temperature 98.0 F Pulse Rate 84 Respiratory Rate 18 Blood Pressure 100/46 L Pulse Oximetry 98 Oxygen Delivery Method Room Air Oxygen Flow Rate 0 Objective Labs Result Diagrams: 11/13/20 05:40 11/11/20 13:25 Labs: Laboratory Results - last 24 hr 11/13/20 05:40 WBC 8.2 RBC 3.97 L Hgb 12.1 L Hct 36.6 L MCV 92.1 MCH 30.6 MCHC 33.2 RDW 12.7 Plt Count 310 Neut % (Auto) 57.8 Lymph % (Auto) 28.6 [place] % (Auto) 11.1 Eos % (Auto) 2.0 Baso % (Auto) 0.5 Neut # (Auto) 4700 Lymph # (Auto) 2300 [place] # (Auto) 900 Eos # (Auto) 200 Baso # (Auto) 0 PFSH Surgical History History of surgical removal of pilonidal cyst Social History marital status: household members: spouse and children occupational status: employed Smoking Status: Current some day smoker alcohol intake: former substance use type: does not use Assessment & Plan Post-op Postoperative Procedures: Procedures Operation Date: 11/11/20 15:00 Actual Procedures Side Surgeon p I&D pilonidal cyst Bilateral Marjorie Cameron MD Postoperative plan narrative: discussed with Pharmacy. Cultures reviewed. Will stop antibiotics. Quality VTE Deep Vein Thrombosis/Pulmonary Embolism Present on Admission: No
[2020-11-13] MEDS: polyethylene glycoL 3350 17 GM POWD.PACK PO (08:56)
[2020-11-13] MEDS: HEPARIN 5,000 UNIT/ML VIAL 5000 UNIT SUBCUT ×2 (08:56→20:12)
[2020-11-13] MEDS: GABAPENTIN 300 MG CAPSULE PO ×2 (08:56→20:12)
--- NOTE | 2020-11-13 09:40 | PC.NURSE ---
Pt called b/c wound vac drsg leaking sanguineous/purulent drainage on bed linens. Pt moved to prone position for drsg reinforcement. KCI drape cut back where the leak was noted, skin cleaned with NS and gauze. Satellite ulcer noted on on L buttock about 1cm away from black foam, base has pink granulation with a small amount of slough, periwound is indurated and warm. Area cleaned, placed small piece of duoderm to cover satellite ulcer. Tegaderm applied to reinforce drsg at gluteal fold, seal obtained, KCI device indicating 125mmHg suction. Pt assisted to BSC to attempt BM. Linens changed. Wash cloths and basin with soap and water given to pt to cleanse while up to BSC.
--- NOTE | 2020-11-13 13:11 | CM.DPC ---
DCP: continued: Case again discussed in Team Rounds. Dr. Cameron saw pt this morning, spoke with nursing and pharmacy and left. Called Dr. Cameron on her cell this afternoon in attempt to find out more clarity re the d/c plan and discuss especially the wound vac process. She stated that she wanted pt to go home on the wound vac and that either HH or the wound clinic should also followup. RN coordinator Cinthia had noted in Team Rounds that pt would need to be seen in the wound clinic as the placement of the vac made any self care of wound unrealistic. Did talk with CHANTEL Oakley, caring for pt today and requested that she put in note from whatever information she knew about wound vac specifics. Dr. Cameron did state in our phone conversation that she did not have any specific information beyond what is in her OP report. She stated that her routine is just to order a wound vac and the hospital staff should take care of the details. Pt is still having pain control issues and his wound was leaking copious amount of foul smelling drainage around the wound vac/see CHANTEL Oakley's notes. Dr. Cameron states that Dr. Corral will be here tomorrow and she herself will be away for a month. DCP team will be following and would greatly appreciate a check in by Dr. Corral to discuss this case going forward. have now left a for CORAL Vieira on her cell: [phone] and also called the main Customer Care line: [phone] and spoke with Bassam. She advises to fax referral info: face sheet, op report and any wound notes to : fax [phone]. Have now done this and included also Dr. Cameron's progress note from today, the H&P and CHANTEL Oakley's notes for 11/12 and 11/13. Receipt of fax confirmation received: 1:02PM.
--- NOTE | 2020-11-13 15:46 | PC.NURSE ---
Pt KCI drsg change performed due to a second leak. Cinthia RN assisted with drsg change. Left black foam in wound base as it was intact and to avoid pt discomfort, removed all the drape and bridging foam, noted that drape was covering most of foam not allowing drainage to properly be suctioned out. Purulent, milky/sanguineous drainage noted on skin and in old foam and drape drsg. Periwound skin warm, erythemic and indurated, satellite ulcers x3 noted on L side of incision site. Area cleaned w/ gauze and NS, wet soapy wash cloths to clean skin. Periwound skin prepped, drape applied surrounding all open areas, and bridged to L lower back, foam placed over the foam in wound and bridged to L lower back, and drape applied over foam to acquire seal. Dr. Cameron called, informed of drsg change and assessment, as well as concern for infection per our assessment during drsg change. No change in treatment plan. Recommendation prior to discharge as having wound care experience: access Ej Seal, to apply a small strip of it to the distal end of periwound skin to avoid detachment of the adhesive near the anus, from too much moisture - the drsg will hold up better against moisture, than just using drape. Make sure to drape over the ej seal after.
[2020-11-13] MEDS: ACETAMINOPHEN 325 MG TABLET 650 MG PO ×2 (16:19→22:37)
[2020-11-13] MEDS: SODIUM CHLORIDE 0.9% FLUSH 10 ML IV (20:12)
[2020-11-14] VITALS (9 sets, daily range): BP systolic 100–127; BP diastolic 52–75; PULSE 71–90; RESP 16–18; TEMP 36.2–37.6; O2SAT 95–100
[2020-11-14] MEDS: OXYCODONE/ACETAMINOPHEN 5/325 TABLET 1 TAB PO ×4 (01:08→19:05)
[2020-11-14] MEDS: ALPRAZolam 0.25 MG TABLET 0.5 MG PO ×3 (04:11→19:39)
[2020-11-14 05:24] LABS: Add Manual Diff / Slide Review NO; Basophils Absolute Auto 100 /uL (0-100); Basophils Percent Auto 0.6 % (0-2); Eosinophils Absolute Auto 200 /uL (0-450); Eosinophils Percent Auto 2.3 % (2-4); Hematocrit 37.3 % (41-53); Hemoglobin 12.4 g/dL (13.5-17.5); Lymphocytes Absolute Auto 2400 /uL (1100-4500); Lymphocytes Percent Auto 27.5 % (25-40); Mean Corpuscular HGB Conc 33.4 % (30-36); Mean Corpuscular Hemoglobin 30.4 PG (26-34); Monocytes Absolute Auto 1000 /uL (0-900); Monocytes Percent Auto 11.6 % (3-14); Neutrophils Absolute Auto 5000 /uL (1500-7000); Platelet Count 348 X10^3/uL (150-400); Red Cell Distribution Width 12.6 % (11.6-14.8); White Blood Cell Count 8.6 X10^3/uL (4.5-11.0)
[2020-11-14] MEDS: GABAPENTIN 300 MG CAPSULE PO ×2 (08:29→20:25)
[2020-11-14] MEDS: CELECOXIB 200 MG CAPSULE PO ×2 (08:29→20:49)
[2020-11-14] MEDS: HEPARIN 5,000 UNIT/ML VIAL 5000 UNIT SUBCUT ×2 (08:29→20:25)
[2020-11-14] MEDS: SODIUM CHLORIDE 0.9% FLUSH 10 ML IV ×2 (08:29→20:48)
--- NOTE | 2020-11-14 10:51 | PC.NURSE ---
Addendum entered by Camila Linton R.N. 11/14/20 13:58: Patient sitting up in bed, up for BM in BSC. Reports feeling anxious about upcoming dressing change, patient appears uncomfortable, diaphoretic. PRN Xanax administered. Addendum entered by Camila Linton R.N. 11/14/20 11:25: 1120 KCI canister replaced, 450 cc of serosang, pablo drainage noted. KCI @ 125mmHg, patient tolerated. Original Note: Patient is A/O x 4, resting in bed right lateral side, breathing unlabored at rest, 99% on RA, denies SOB, dizziness, or lightheadedness. Wound V.A.C CDI, suction to 125mmHg, canister presents with serosang and pablo drainage. Patient reports pain /10, PRN medication administered. IV in right AC patent. Saline locked at this time. Patient OOB for care, pain increases with movement, patient becomes shaky and diaphoretic. Ice applied to wound. Linens changed. Patient denies chest pain, pulses equal, VS WNL. Patient voiding using urinal, reports last BM was 11/13. Tolerating food. Call light in reach, denies further needs at this time.
--- NOTE | 2020-11-14 10:54 | CM.DPC ---
Addendum entered by Kiesha Martinez R.N. 11/14/20 15:43: Spoke to Dr. Corral. He will sign wound vac form left over by patient's chart, and will plan to have patient follow up with Dr. Duran at the wound clinic. He stated that he will keep patient here another day in order to change wound vac, and see how he tolerates. He may also sign face to face to see about home health. Patient will need authorization, is unclear if home health will get versus care management. Addendum entered by Kiesha Martinez R.N. 11/14/20 12:08: Spoke to patient today. He is hopeful to go home. It is unclear as of yet if patient will be following up at wound clinic, spoke to Yazmin at wound care who stated that she currently has no referral. Patient indicated, he is interested in home health, as it is hard for him to get out, with the wound vac to be seen several times a week if needed at the would clinic. Patient is not familiar with any home health agencies and has no preferences. Jumana at [facility] stated that they are currently not contracted with [facility]. Called [facility]. Left Keeley a message about patient and called their front desk manager. Maday indicated that they do take . Went ahead and faxed over face sheet, H&P, and nursing note showing wound vac information. Will attempt to meet up with Dr. Corral to discuss discharge planning, and have him sign wound vac prescription, as well as some information needed on form. He would also need to sign face to face as well. Original Note: DCP Cont: Spoke to Emery from [facility] regarding patient's wound vac. He mentioned that patient may need a letter of necessity as to why patient needs wound vac, and how long. He mentioned that he would have Page from [facility] get in touch with this pillowcase cleaner. Went ahead and contacted Page at [facility]. Her phone number [phone]. Started filling out wound vac form. Page is requesting operative report to be faxed to her. Her fax number is: [phone]. Stated that provider needs to sign form, and that can act as a prescription. It is unclear as to when patient will be discharged. P: DCP to continue to follow. Will attempt to meet with Dr. Corral to discuss plan further, and have form completed. Kiesha Martinez RN/Process Lead
[2020-11-14] MEDS: ACETAMINOPHEN 325 MG TABLET 650 MG PO (11:34)
[2020-11-14] MEDS: NICOTINE 14 PATCH 14 MG TOP (11:56)
[2020-11-14] MEDS: ONDANSETRON 4 MG/2 ML INJ IV ×2 (13:13→17:47)
[2020-11-14] MEDS: HYDROMORPHONE 1 MG INJ ×2 (15:35→15:50)
--- NOTE | 2020-11-14 18:13 | PC.NURSE ---
Addendum entered by Mihaela Barnes R.N. 11/14/20 22:13: Dsg to sacral area changed/reinforced do to drainage. Med w/dilaudid prior to w/good effect. Call light w/in reach, pt calls appropriately for needs. Continmue w/plan of care. Original Note: Pt SpO2 98% RA Wound vac in place Dr Corral here to do dsg change. Pt med w/ diluadid pre dsg change, Pt tearful during procedure. even w/dilaudid. New dsg wet-dry gauze placed, some serous dranage noted. HL intact/patent. Zofran given @ 1750 for nausea. Appears to be resting well now. Call light w/reach/ pt calls appropriately for needs.
--- NOTE | 2020-11-14 20:22 | P.PN_ITS ---
Subjective Subjective Date Patient Seen: 11/14/20 Time Patient Seen: 20:22 Interval history: no acute events Exam Vital Signs (past 8 hours): - 11/14/20 15:15 11/14/20 16:00 11/14/20 17:43 Temperature 97.2 F L 97.8 F Pulse Rate 74 Respiratory Rate 16 Blood Pressure 102/56 L Pulse Oximetry 100 98 11/14/20 19:30 Temperature 99.6 F Pulse Rate 90 Respiratory Rate 17 Blood Pressure 127/75 Pulse Oximetry 99 Oxygen Delivery Method Room Air Oxygen Flow Rate 0 Narrative Exam Narrative: general adult male alert and oriented back wound vac removed from pilonidal cyst wound. base of wound has granulation tissue no necrosis. Area outside of wound is indurated and tender. Purulence is expressed from wound edges Objective Labs Result Diagrams: 11/14/20 05:15 11/11/20 13:25 Labs: Laboratory Results - last 24 hr 11/14/20 05:15 WBC 8.6 RBC 4.10 L Hgb 12.4 L Hct 37.3 L MCV 91.0 MCH 30.4 MCHC 33.4 RDW 12.6 Plt Count 348 Neut % (Auto) 58.0 Lymph % (Auto) 27.5 [place] % (Auto) 11.6 Eos % (Auto) 2.3 Baso % (Auto) 0.6 Neut # (Auto) 5000 Lymph # (Auto) 2400 [place] # (Auto) 1000 H Eos # (Auto) 200 Baso # (Auto) 100 PFSH Surgical History History of surgical removal of pilonidal cyst Social History marital status: household members: spouse and children occupational status: employed Smoking Status: Current some day smoker alcohol intake: former substance use type: does not use Assessment & Plan Post-op Postoperative Procedures: Procedures Operation Date: 11/11/20 15:00 Actual Procedures Side Surgeon p I&D pilonidal cyst Bilateral Marjorie Cameron MD Postoperative plan narrative: 25M POD 3 sp incision and drainage of pilonidal cyst #Wound care-required 2 mg of IV dilaudid and was still unable to adequately tolerate wound vac change today. In addition there was remaining purulence within the wound. Switch to wet to dry daily. If tolerates wet to dry with PO meds tomorrow may discharge. Quality VTE Deep Vein Thrombosis/Pulmonary Embolism Present on Admission: No
[2020-11-14] MEDS: HYDROMORPHONE 1 MG INJ IV (21:25)
[2020-11-15 02:04] VITALS: BP 98/47; PULSE 71; RESP 16; TEMP 36.1; O2SAT 98
[2020-11-15] MEDS: OXYCODONE/ACETAMINOPHEN 5/325 TABLET 1 TAB PO ×2 (02:04→13:16)
--- NOTE | 2020-11-15 02:24 | PC.NURSE ---
Addendum entered by Bianca George R.N. 11/15/20 05:26: Dressing leaking serosanguinous drainage with some brown purulent material noted as well. Dressing/packing removed and repacked with saline soaked gauze and covered with 4x4's & ABD pad. Patient tolerated dressing change fairly well but did request Xanax & Celebrex following dressing change. Original Note: patient is alert and oriented. Breath sounds CTA with RA sat of 98%. HRR w/BP of 98/47 but has been trending on low side and denies dizziness or lightheadedness. Reports he has intermittent left chest discomfort but denies at this time. Denies nausea. BT present and abdomen is soft. Denies dysuria, frequency or urgency with urination. Able to move himself in bed. Currently has a wet to dry dressing over left buttock area which is CDI. States pain is currently 7/10 so medicated with Percocet; declines ice pack. Fall risk score is low.
[2020-11-15] MEDS: ALPRAZolam 0.25 MG TABLET 0.5 MG PO (05:23)
[2020-11-15] MEDS: CELECOXIB 200 MG CAPSULE PO (05:23)
[2020-11-15 05:46] VITALS: BP 102/66; PULSE 70; RESP 16; TEMP 36.2; O2SAT 95
[2020-11-15 06:17] LABS: Add Manual Diff / Slide Review NO; Basophils Absolute Auto 0 /uL (0-100); Basophils Percent Auto 0.6 % (0-2); Eosinophils Absolute Auto 300 /uL (0-450); Hematocrit 38.5 % (41-53); Hemoglobin 13.2 g/dL (13.5-17.5); Lymphocytes Absolute Auto 2300 /uL (1100-4500); Lymphocytes Percent Auto 26.5 % (25-40); Mean Corpuscular HGB Conc 34.3 % (30-36); Mean Corpuscular Hemoglobin 31.1 PG (26-34); Mean Corpuscular Volume 90.7 fL (80-100); Monocytes Absolute Auto 1100 /uL (0-900); Monocytes Percent Auto 12.9 % (3-14); Neutrophils Absolute Auto 4900 /uL (1500-7000); Platelet Count 366 X10^3/uL (150-400); Red Blood Cell Count 4.25 X10^6/uL (4.5-5.9); Red Cell Distribution Width 12.5 % (11.6-14.8); White Blood Cell Count 8.6 X10^3/uL (4.5-11.0)
[2020-11-15 08:00] VITALS: BP 112/70; PULSE 66; RESP 16; TEMP 36.6; O2SAT 95; O2SAT 96
[2020-11-15] MEDS: GABAPENTIN 300 MG CAPSULE PO (09:06)
[2020-11-15] MEDS: HEPARIN 5,000 UNIT/ML VIAL 5000 UNIT SUBCUT (09:06)
[2020-11-15] MEDS: fentaNYL 50 MCG/PATCH TOP (09:06)
[2020-11-15] MEDS: SODIUM CHLORIDE 0.9% FLUSH 10 ML IV (09:07)
[2020-11-15] MEDS: polyethylene glycoL 3350 17 GM POWD.PACK PO (09:07)
--- NOTE | 2020-11-15 11:05 | PC.NURSE ---
Pt reported feeling gauze falling out of wet to dry drsg. Drsg evaluated and changed as ordered. Periwound skin is indurated, lightly pink/erythemic. Temperature WNL. Wound base appears to have pink granulation with small amounts of slough. Gauze moistened with saline, wrung out, lightly filling wound. Gauze and abd pad placed over packing, secured in place with hypafix tape.
[2020-11-15 12:00] VITALS: BP 96/50; PULSE 66; RESP 16; TEMP 36.6; O2SAT 98
--- NOTE | 2020-11-15 14:31 | CM.DPC ---
DCP Cont: Patient no longer has a wound vac. He will be going home with a wet to dry dressing. Patient exhibited anxiety about going home, in fear that his will not be able to do the dressing changes. Nurse,Norma, and Dr. Corral encouraging patient that face time can be done with for teach back, for patient's is unable to come up to the floor. Patient is being discharged today, for he is medically stable. Called Keeley at [facility] and gave her an update. They are in the process of working with [facility] for referral. Updated patient, and gave him [facility] brochure. Had Dr. Corral sign a face to face, and will fax over nurses note indicating how dressing is being changed. Will fax DC Summary to [facility] when completed. Confirmed with Kami at [facility], that patient has an appointment this at 0900. Patient is aware of appointment, as nursing was explaining discharge. He will be going home with some dressing supplies. P: Patient is being discharged home today with [facility], with wet to dry dressings, no wound vac. He will follow up at wound clinic this at 0900. Kiesha Martinez RN/Tube Mounter
--- NOTE | 2020-11-15 16:33 | PC.NURSE ---
Addendum entered by Yomaira Patton R.N. 11/15/20 16:50: pt can remove fentanyl patch in 2 days per provider Original Note: wound dressing changed and teaching done by José Antonio. dressing supplies in the bag with patient. pt aware he needs to make follow up appt with Dr. Corral. discharge paper work given to patient. pt will call the office tomorrow for a note for his work.
--- NOTE | 2020-11-15 17:42 | PM.DS.1 ---
History of Present Illness History of Present Illness Date Patient Seen: 11/15/20 Time Patient Seen: 17:42 Chief complaint: pain after Cystectomy Narrative: 25-year-old male with pilonidal cyst who underwent pilonidal cyst excision and debridement for 10/31/20. He returned to the hospital 11/11 with worsening pain and drainage admitted for infected pilonidal cyst. Discharge Providers Provider Date of admission: 11/11/20 14:11 Discharge Date: 11/15/20 Primary care physician: Flaco Goddard MD Consults: 11/11/20 16:07 Consult to Discharge Planning Routine Comment: needs VNS and home wound vac 11/12/20 09:07 Consult to Discharge Planning Routine Comment: needs home VNS and wound vac. 11/15/20 14:29 Consult to Home Health Routine Comment: Wound assess, dressing, and teaching Reason For Exam: Home Health slasher operator provider: Fabián Corral MD Summary Hospital Course Discharge Diagnosis: Infected pilonidal cyst Hospital Course: Patient was brought to the operating room 11/11 and underwent incision and drainage of pilonidal cyst with application of a wound VAC. He remained in the hospital for wound care and antibiotic therapy. VAC was removed 11/14 changed to wet-to-dry dressing antibiotics were discontinued. At the time of discharge his pain is controlled and his has been instructed on dressing changes. VNA has been arranged. Exam Vital Signs (past 8 hours): - 11/15/20 12:00 Temperature 97.8 F Pulse Rate 66 Respiratory Rate 16 Blood Pressure 96/50 L Pulse Oximetry 98 Oxygen Delivery Method Room Air Oxygen Flow Rate 0 Narrative Exam Narrative: General adult male alert oriented no acute distress Abdomen soft nontender nondistended Back gluteal cleft wound. base with granulation tissue small amount of fibrinous debris within the wound. Approximately 3 cm deep, 10 cm in maximal diameter Objective Labs Result Diagrams: 11/15/20 05:54 11/11/20 13:25 Labs: Laboratory Results - last 24 hr 11/15/20 05:54 WBC 8.6 RBC 4.25 L Hgb 13.2 L Hct 38.5 L MCV 90.7 MCH 31.1 MCHC 34.3 RDW 12.5 Plt Count 366 Neut % (Auto) 57.0 Lymph % (Auto) 26.5 [place] % (Auto) 12.9 Eos % (Auto) 3.0 Baso % (Auto) 0.6 Neut # (Auto) 4900 Lymph # (Auto) 2300 [place] # (Auto) 1100 H Eos # (Auto) 300 Baso # (Auto) 0 PFSH Surgical History History of surgical removal of pilonidal cyst Social History marital status: household members: spouse and children occupational status: employed Smoking Status: Current some day smoker alcohol intake: former substance use type: does not use Discharge Plan Discharge Plan Patient Disposition: Home Provider Discharge Comment: follow up with Wound care 11/17. Clean dry gauze dressing to wound once daily. Please call surgery office to schedule follow up appointment with Dr. Celis next week. Discharge orders & Medications Prescriptions: New oxycodone 5 mg tablet 5 mg PO Q6H PRN (Reason: pain) Qty: 30 RF: 0 Continued oxycodone 5 mg tablet 5 mg PO Q6H PRN (Reason: post operative pain) Qty: 30 RF: 0 docusate sodium 100 mg capsule 100 mg PO BID Qty: 20 RF: 0 ibuprofen 800 mg Tablet 800 mg PO Q8H PRN (Reason: Pain (Scale Score 7-10)) RF: 0 acetaminophen [Tylenol] 325 mg Capsule 500 mg PO Q4H PRN (Reason: Pain (Scale Score 1-3)) RF: 0 Follow up/Referrals: Flaco Goddard MD [Primary Care Provider] - Diet/Activity/Treatments Diet: Regular Skin/Wound/Dressing Care Report to your healthcare provider any signs of infection, such as:: increased pain Visit Report/Discharge Packet Instructions: DI for Prescription Opioid Use, DI for Incision and Drainage, [facility]: Wound Care Discharge Data Primary Care Provider: Flaco Goddard Quality VTE Deep Vein Thrombosis/Pulmonary Embolism Present on Admission: No
--- NOTE | 2020-11-16 08:24 | CM.DPNOTE ---
Late entry: Faxed DC summary per Georgette to [facility] and received fax confirmation. Pauline Ocampo CM Asst.
== END 2020-11-15 17:11 | disposition home health service (06) | DRG 581 ==
LOC: ED 13:18 → AC 14:13
PROVIDERS: Admitting Provider Surgery; Emergency Provider Emergency Medicine; PCP Family Medicine; Referring Provider Internal Medicine Rheumatology; Visit Provider Surgery
PROC: 0J990ZZ Drainage of Buttock Subcutaneous Tissue and Fascia, Open Approach (ICD-10-PCS; CPT 46040; principal; 2020-11-11 15:00)
DX: L05.01 Pilonidal cyst with abscess (principal); Z72.0 Tobacco use; Z20.822 Contact with and (suspected) exposure to COVID-19
CPT/HCPCS: 11772; 36415; 80048; 83605; 85025; 87040; 87070; 87077; 87186; 87205; 87635; 96374; 96375; 99222; 99284; 99406; C9803; J1170; J1644; J2270; J2405; J2704; J3010

== ENCOUNTER → 2020-11-17 09:12 | Outpatient (CLI) | payer OTHER, SELFPAY ==
[2020-11-11 17:08] VITALS: BMI 27.1
== END ==
PROVIDERS: Family Provider Family Medicine; PCP Family Medicine; Referring Provider Family Medicine; Visit Provider Family Medicine
DX: S31.819A Unspecified open wound of right buttock, initial encounter (principal); S31.829A Unspecified open wound of left buttock, initial encounter; L08.9 Local infection of the skin and subcutaneous tissue, unspecified
CPT/HCPCS: 99204; 99213

== ENCOUNTER → 2020-11-21 10:08 | Outpatient (CLI) | payer OTHER, SELFPAY ==
[2020-11-18 15:37] VITALS: BMI 27.1
== END ==
PROVIDERS: Family Provider Family Medicine; PCP Family Medicine; Referring Provider Family Medicine; Visit Provider Family Medicine
DX: S31.819A Unspecified open wound of right buttock, initial encounter (principal); S31.829A Unspecified open wound of left buttock, initial encounter; L08.9 Local infection of the skin and subcutaneous tissue, unspecified
CPT/HCPCS: 87070; 87077; 87186; 87205; 99213; 99214

== ENCOUNTER → 2020-11-23 16:19 | Outpatient (CLI) | payer OTHER, SELFPAY ==
[2020-11-18 15:37] VITALS: BMI 27.1
== END ==
PROVIDERS: Family Provider Family Medicine; PCP Family Medicine; Referring Provider Family Medicine; Visit Provider Family Medicine
DX: S31.819A Unspecified open wound of right buttock, initial encounter (principal); S31.829A Unspecified open wound of left buttock, initial encounter; L08.9 Local infection of the skin and subcutaneous tissue, unspecified
CPT/HCPCS: 99213

== ENCOUNTER → 2020-11-30 14:27 | Outpatient (CLI) | payer OTHER, SELFPAY ==
[2020-11-18 15:37] VITALS: BMI 27.1
== END ==
PROVIDERS: Family Provider Family Medicine; PCP Family Medicine; Referring Provider Surgery; Visit Provider Nurse Practitioner Family
DX: S31.000A Unspecified open wound of lower back and pelvis without penetration into retroperitoneum, initial encounter (principal)
CPT/HCPCS: 97605

== ENCOUNTER → 2020-12-06 12:00 | Outpatient (CLI) | payer OTHER, SELFPAY ==
[2020-11-18 15:37] VITALS: BMI 27.1
== END ==
PROVIDERS: Family Provider Family Medicine; PCP Family Medicine; Referring Provider Surgery; Visit Provider Family Medicine
DX: S31.819A Unspecified open wound of right buttock, initial encounter (principal); S31.829A Unspecified open wound of left buttock, initial encounter
CPT/HCPCS: 97597; 97605

== ENCOUNTER → 2020-12-14 12:45 | Outpatient (CLI) | payer OTHER, SELFPAY ==
[2020-12-14 11:15] VITALS: BMI 27.1
== END ==
PROVIDERS: Family Provider Family Medicine; PCP Family Medicine; Referring Provider Family Medicine; Visit Provider Family Medicine
DX: S31.000A Unspecified open wound of lower back and pelvis without penetration into retroperitoneum, initial encounter (principal)
CPT/HCPCS: 99213

== ENCOUNTER → 2020-12-16 10:10 | Outpatient (CLI) | payer OTHER, SELFPAY ==
[2020-12-14 11:15] VITALS: BMI 27.1
[2020-12-16 11:14] LABS: COVID19 -Nasal RAPID Negative (Negative)
== END ==
PROVIDERS: PCP Family Medicine; Visit Provider Surgery
DX: Z20.822 Contact with and (suspected) exposure to COVID-19 (principal)
CPT/HCPCS: 87635; C9803

== ENCOUNTER 2020-12-19 12:19 | Day surgery (SDC) | payer OTHER, SELFPAY ==
[2020-12-14 11:15] VITALS: BMI 27.1
[2020-12-16 08:09] VITALS: BMI 26.8
[2020-12-19] VITALS (7 sets, daily range): BP systolic 106–120; BP diastolic 67–84; PULSE 73–105; RESP 10–16; TEMP 36.4–36.7; O2SAT 98–100; BMI 26.8
[2020-12-19] MEDS: LACTATED RINGERS 1,000 ML 100 ML IV (13:15)
--- NOTE | 2020-12-19 14:18 | PM.PREOP ---
Pre-operative Note COVID-19 COVID-19 status: Negative Result date/Date tested (Pos, Neg/Pending): 12/16/20 Interval Note History & Physical reviewed/Exam performed by Physician: Yes Changes to H&P: No
[2020-12-19] MEDS: levoFLOXacin 500 MG/100 ML PIGGYBACK 100 MG IV (14:26)
[2020-12-19] MEDS: metroNIDAZOLE 500 MG/100 ML PIGGYBACK 100 MG IV (14:50)
[2020-12-19] MEDS: BUPIVACAINE 0.5% W/ EPI (PF) 30 ML VIAL INJ (15:07)
[2020-12-19] MEDS: BUPIVACAINE LIPOSOME 266 MG/20 ML VIAL INJ (15:28)
--- NOTE | 2020-12-19 16:02 | PM.OP.1 ---
Operative Date/Time/Diagnoses Date of procedure: 12/19/20 Time of procedure: 16:02 Pre-op diagnosis: Delayed healing pilonidal cyst wound Post-op diagnosis: other (Deep tunneling of the wound inferior toward the rectum and lateral toward the left buttock) Procedure & Clinicians Procedure: Excisional debridement of recurent pilonidal cyst Same procedure as scheduled: Yes Indications: This patient came to clinic last month wtih a very symptomatic pilonidal cyst with abscess. He has been operated on twice, and stalled healing due to curling of the skin edges and tunneling of this wound with wound vac management. Surgeon: Edna Celis Anesthesia Type: General Operative Notes Findings: Deep tunneling inferior to the wound with tunneling toward the rectum; deep tunneling laterally to the patient's left buttock Specimen(s): none sent Blood products transfused: none Procedure in detail: The patient was brought into the OR. Sequential compression devices were placed on both legs and turned on. Appropriate perioperative antibiotics were given. General anesthesia was induced and the patient was intubated. The patient was turned prone onto the OR table. All bony prominences were padded. Wound vac was removed. The perianal area was prepped and draped in sterile fashion with betadine prep. Surgical timeout was conducted. A 6cm x 4cm area of granulated wound bed was seen. The right skin edge was flat and non indurated. The left skin edge was curled under and tacked down. It was thickened but not indurated and bore no signs of infection or cellulitis. Upon closer investigation, deep tunneling inferiorly at 6:00 and to the left at 9:00 were identified. The tunneled areas were 6cm inferiorly and 8cm laterally to the left buttock. Both tunneled areas were debrided with a curett. A 1cm counter incision was made in the left buttock overlying the lateral extent of the tunnel. After curretting the left lateral tunnel thoroughly the tunnel was packed through the left buttock counter incision using 6cm of 1/4 inch plain strip gauze. The inferior tunnel was also well curretted and then packed with a single 4x4 gauze with the tail coming up into the central wound. The skin at the left edge of the central wound was then addressed. A 3cm x 1cm area of skin was excised using a 15 blade to get rid of the thickened skin which was curled under, preventing appropriate healing on that side of the wound. The final wound was 8cm x 5cm with moderate bed of granulation and the two tunneled areas which were 8cm laterally to the left and 6cm inferiorly. The remaining wound bed was packed with saline saturated gauze, with packing into the left lateral tunnel meeting the strip gauze coming from the counter incision. A stack of 4x4 gauze was then used to cover the entire surgical site and secured in place with medipore tape. The patient was transferred onto his hospital bed into supine position. He was then awakened from anesthesia and extubated. Needle, sponge, and instrument counts were correct x 2. The patient was transferred to the PACU in stable condition. Complications: none Post-operative Condition: stable Disposition: PACU Plan for aftercare: Discharge home, follow up in clinic tomorrow
--- NOTE | 2020-12-19 16:39 | SUR.PHASEII ---
Pt dressed ready for discharged. Waiting for . Steady on feet.
== END 2020-12-19 16:49 | disposition home or self-care (01) ==
PROVIDERS: PCP Student in an Organized Health Care Education/Training Program; Referring Provider Surgery; Visit Provider Surgery
PROC: (CPT 11772; principal; 2020-12-19 13:45)
DX: L05.02 Pilonidal sinus with abscess (principal); F17.210 Nicotine dependence, cigarettes, uncomplicated
CPT/HCPCS: 11772; C9290; J0330; J1100; J1956; J2250; J2405; J2704; J3010

== ENCOUNTER → 2020-12-20 12:33 | Outpatient (CLI) | payer OTHER, SELFPAY ==
[2020-12-19 15:58] VITALS: BMI 27.1
[2020-12-20 13:17] LABS: COVID19 -Nasal RAPID Negative (Negative)
== END ==
PROVIDERS: PCP Student in an Organized Health Care Education/Training Program; Visit Provider Surgery
DX: Z20.822 Contact with and (suspected) exposure to COVID-19 (principal)
CPT/HCPCS: 87635

== ENCOUNTER 2020-12-20 14:14 | Inpatient (IN) | payer OTHER, SELFPAY ==
[2020-12-19 15:58] VITALS: BMI 27.1
[2020-12-20] VITALS (23 sets, daily range): BP systolic 82–138; BP diastolic 41–74; PULSE 65–128; RESP 10–24; TEMP 36.1–37.2; O2SAT 95–100; BMI 24.4
--- NOTE | 2020-12-20 14:25 | ED_ITS ---
HPI - Recheck/Abnormal Lab/Rx General Chief Complaint: Recheck/Abnormal Lab/Rx Stated Complaint: pilonidal cystectomy complications Time Seen by Provider: 12/20/20 14:21 Source: patient Mode of arrival: Ambulatory Limitations: no limitations History of Present Illness HPI narrative: Patient is a 25-year-old male who recently had a pilonidal cystectomy. Was seen in the general surgery clinic today as a follow-up. Patient has had some significant bleeding. According to report from the general surgeon recommendation was made that the patient be admitted from the general surgery clinic for debridement and hemorrhage control in the operating room. The patient states that he was unable to stay because he could not leave his family with 1 vehicle so he drove the vehicle home and now returns to the emergency department. He does describe discomfort and bleeding from the pilonidal cyst region of his lower back. Related Data Home Medications Medication Instructions Recorded Confirmed ibuprofen 800 mg PO Q8H PRN 10/31/20 12/20/20 acetaminophen [Tylenol] 500 mg PO Q4H PRN 11/11/20 12/20/20 Previous Rx's Medication Instructions Recorded docusate sodium 100 mg capsule 100 mg PO BID #20 cap 10/31/20 oxycodone 5 mg tablet 5 mg PO Q6H PRN #30 tab 10/31/20 docusate sodium 100 mg PO BID #20 cap 12/19/20 oxycodone 5 mg PO Q6H PRN #20 tab 12/19/20 Allergies Allergy/AdvReac Type Severity Reaction Status Date / Time Penicillins Allergy Severe Anaphylaxis Verified 12/20/20 16:30 morphine AdvReac Intermediate Hypotension Verified 12/20/20 16:31 Review of Systems Constitutional Constitutional: Reports system reviewed and no additional complaints, except as documented Musculoskeletal Comments: Lower back discomfort Integumentary/Breasts Comments: Bleeding from the surgical site Neurologic Neurologic: Reports system reviewed and no additional complaints, except as documented Hematologic/Lymphatic On Anticoagulants: No Allergic/Immunologic Allergic/Immunologic: Reports system reviewed and no additional complaints, except as documented 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 History History of incision and drainage (11/11/20) History of surgical removal of pilonidal cyst (10/31/20) Social History marital status: household members: spouse and children occupational status: employed Smoking Status: Former smoker alcohol intake: former substance use type: does not use Smoking Status: Former smoker alcohol intake frequency: holidays/special occasions only Substance Use Type: does not use Exam Initial Vital Signs Initial Vital Signs: Vital Signs Temperature 98.9 F 12/20/20 14:17 Pulse Rate 128 H 12/20/20 14:17 Respiratory Rate 24 12/20/20 14:17 Blood Pressure 116/74 12/20/20 14:17 Pulse Oximetry 98 12/20/20 14:17 Const General: cooperative and comfortable Limitations: mental status not altered HENMT Head: normal to inspection and normocephalic Resp Effort & Inspection: normal respiratory effort Cardio Rate: tachycardic Back/Spine/Pelvis Other: Surgical changes lower back consistent with stated history Skin Other: Patient with a large open wound in his lower back consistent with his pilonidal cystectomy. The bandage it was in place when he arrived is saturated it he is oozing from around it. This was removed. He continues have a significant amount of oozing. Extrem General: capillary refill normal Psych Appearance: grossly normal and well kempt Course Orders Ordered: ED Orders 12/20/20 14:30 Basic Metabolic Panel Stat Complete Blood Count AUTO DIFF Stat Type and Screen Stat Acetaminophen (Acetaminophen 325 Mg Tablet) 650 mg PO Q6HR PRN PRN Reason: Pain, Mild (1-3) Docusate Sodium (Docusate 100 Mg Capsule) 100 mg PO BID PRN PRN Reason: Constipation Hydromorphone HCl (Hydromorphone 1 Mg Inj) 0.5 mg IV Q4HR PRN PRN Reason: Pain, Severe (7-10) Sodium Chloride (Normal Saline 0.9%) 1,000 mls @ 125 mls/hr IV CONT BIN Naloxone HCl (Naloxone 0.4 Mg/Ml Vial) 0.2 mg IV Q2MIN PRN PRN Reason: Opiate Reversal Ondansetron HCl (Ondansetron 4 Mg/2 Ml Inj) 4 mg IV Q4HR PRN PRN Reason: Nausea And Vomiting Oxycodone HCl (Oxycodone Ir 5 Mg Tablet) 5 mg PO Q6HR PRN PRN Reason: Pain, Moderate (4-6) Discontinued Medications Bupivacaine HCl/Epinephrine Bitart (Bupivacaine 0.5% W/ Epi (Pf) 30 Ml Vial) 30 ml INJ NOW ONE Stop: 12/20/20 17:10 Last Admin: 12/20/20 17:09 Dose: 30 ml Documented by: KALI Fentanyl (Fentanyl 100 Mcg/2 Ml Inj) 0 mcg IV Q5M PRN PRN Reason: Pain, Moderate (4-6) Sodium Chloride (Normal Saline 0.9%) 1,000 mls @ 125 mls/hr IV CONT [facility] Last Infusion: 12/20/20 16:13 Dose: 0 mls/hr Documented by: Admin: 12/20/20 15:40 Dose: 125 mls/hr Documented by: MAYANK Metronidazole (Flagyl) 500 mg in 100 mls @ 100 mls/hr IV NOW ONE Stop: 12/20/20 17:16 Last Infusion: 12/20/20 17:11 Dose: 0 mls/hr Documented by: Admin: 12/20/20 16:43 Dose: 100 mls/hr Documented by: SEJAL Levofloxacin (Levaquin) 500 mg in 100 mls @ 100 mls/hr IV NOW ONE Stop: 12/20/20 17:19 Last Infusion: 12/20/20 17:11 Dose: 0 mls/hr Documented by: Admin: 12/20/20 16:43 Dose: 100 mls/hr Documented by: SEJAL Lactated Ringer's (Lactated Ringers) 1,000 mls @ 42 mls/hr IV CONT [facility] Last Infusion: 12/20/20 18:27 Dose: 0 mls/hr Documented by: MIGUEL ANGEL Admin: 12/20/20 16:43 Dose: 42 mls/hr Documented by: SEJAL Midazolam HCl (Midazolam 2 Mg/2 Ml Vial) 2 mg IV NOW ONE Stop: 12/20/20 16:34 Morphine Sulfate (Morphine 4 Mg/Ml Inj) 4 mg IV NOW ONE Stop: 12/20/20 15:36 Last Admin: 12/20/20 15:40 Dose: 4 mg Documented by: MAYANK Ondansetron HCl (Ondansetron 4 Mg/2 Ml Inj) 4 mg IV NOW ONE Stop: 12/20/20 15:49 Last Admin: 12/20/20 15:57 Dose: 4 mg Documented by: AARON Ondansetron HCl (Ondansetron 4 Mg/2 Ml Inj) 4 mg IV NOW PRN PRN Reason: Nausea And Vomiting Oxycodone HCl (Oxycodone Ir 5 Mg Tablet) 5 mg PO PACUNOW PRN PRN Reason: Mild or moderate pain Oxycodone/Acetaminophen (Oxycodone/Acetaminophen 5/325 Tablet) 1 tab PO PACUNOW PRN PRN Reason: Mild or Moderate Pain Vital Signs Vital signs: Vital Signs - 8 hr 12/20/20 14:17 12/20/20 14:30 12/20/20 15:00 Temperature 98.9 F Pulse Rate 128 H 107 H 97 H Respiratory Rate 24 18 16 Blood Pressure 116/74 117/65 125/72 Pulse Oximetry 98 99 100 12/20/20 15:30 12/20/20 15:50 Temperature Pulse Rate 77 79 Respiratory Rate 17 Blood Pressure 107/58 L Pulse Oximetry 99 100 MDM - Recheck/Abnormal Lab/Rx Lab Data Attestation: I reviewed the patient's lab results. Result diagrams: 12/20/20 14:30 12/20/20 14:30 Labs: Lab Results 12/20/20 12/20/20 12/20/20 Range/Units 14:30 14:30 14:30 WBC 12.1 H (4.5-11.0) X10^3/uL RBC 4.83 (4.5-5.9) X10^6/uL Hgb 15.0 (13.5-17.5) g/dL Hct 44.2 (41-53) % MCV 91.5 (80-100) fL MCH 31.1 (26-34) PG MCHC 34.0 (30-36) % RDW 13.5 (11.6-14.8) % Plt Count 263 (150-400) X10^3/uL Neut % (Auto) 59.2 (50-75) % Lymph % (Auto) 32.7 (25-40) % Lane % (Auto) 6.5 (3-14) % Eos % (Auto) 1.3 L (2-4) % Baso % (Auto) 0.3 (0-2) % Neut # (Auto) 7200 H (6489-2858) /uL Lymph # (Auto) 4000 (2078-9871) /uL Lane # (Auto) 800 (0-900) /uL Eos # (Auto) 200 (0-450) /uL Baso # (Auto) 0 (0-100) /uL Sodium 140 (137-145) mmol/L Potassium 3.4 (3.4-5.1) mmol/L Chloride 105 (98-107) mmol/L Carbon Dioxide 20 L (22-32) mmol/L BUN 7 L (9-20) mg/dL Creatinine 0.90 (0.66-1.25) mg/dL Estimated GFR > 60.0 (>60) mL/min BUN/Creatinine Ratio 7.8 (6-22) Glucose 101 H (70-100) mg/dL Calcium 10.0 (8.4-10.2) mg/dL Blood Type O Positive Antibody Screen Negative Antigen Identification Cancelled MDM Narrative Medical decision making narrative: Patient does have a significant amount of oozing from his surgical site. I received a call from Dr. Celis with General surgery prior to his arrival with the plan to admit the patient to the operating room for hemorrhage control. Patient is aware of this. Dr. Celis evaluated the patient in the emergency department and will take rate to the operating room. Discharge Plan Departure Patient Disposition: Admitted as Observation Clinical Impression: Haemorrhage postprocedure, Pilonidal abscess Admit Date/Time: 12/20/20 15:59 Admit Provider: Edna Celis
[2020-12-20 14:57] LABS: Add Manual Diff / Slide Review NO; Basophils Absolute Auto 0 /uL (0-100); Basophils Percent Auto 0.3 % (0-2); Eosinophils Absolute Auto 200 /uL (0-450); Eosinophils Percent Auto 1.3 % (2-4); Hematocrit 44.2 % (41-53); Lymphocytes Absolute Auto 4000 /uL (1100-4500); Lymphocytes Percent Auto 32.7 % (25-40); Mean Corpuscular Hemoglobin 31.1 PG (26-34); Mean Corpuscular Volume 91.5 fL (80-100); Monocytes Absolute Auto 800 /uL (0-900); Monocytes Percent Auto 6.5 % (3-14); Neutrophils Absolute Auto 7200 /uL (1500-7000); Neutrophils Percent Auto 59.2 % (50-75); Platelet Count 263 X10^3/uL (150-400); Red Blood Cell Count 4.83 X10^6/uL (4.5-5.9); Red Cell Distribution Width 13.5 % (11.6-14.8); White Blood Cell Count 12.1 X10^3/uL (4.5-11.0)
--- NOTE | 2020-12-20 15:05 | PC.NURSE ---
Saturated dressing was removed from rectal area. There are two incision, the one in the center in the gluteal fold is oozing constantly with moderate amount of blood. pressure applied for thirty minutes with at least 200cc blood loss noted.
--- NOTE | 2020-12-20 15:06 | PC.NURSE ---
Dressing applied with bulky gauze to rectal area. Patient turned to be lying directly on bandage/incision to provide pressure.
[2020-12-20 15:13] LABS: HEMOLYSIS < 15 (0-50); Potassium 3.4 mmol/L (3.4-5.1)
[2020-12-20 15:14] LABS: BUN Creatinine Ratio 7.8 (6-22); Blood Urea Nitrogen 7 mg/dL (9-20); Carbon Dioxide 20 mmol/L (22-32); Chloride 105 mmol/L (98-107); Estimated Glomerular Filt Rate > 60.0 mL/min (>60); Glucose 101 mg/dL (70-100); Sodium 140 mmol/L (137-145)
--- NOTE | 2020-12-20 15:34 | PC.NURSE ---
Dressing is saturated at this time. Dr. Gunter aware, pain meds to be ordered so that patient may be able to lie on back and create pressure on wound to staunch bleeding.
[2020-12-20] MEDS: MORPHINE 4 MG/ML INJ IV (15:40)
[2020-12-20] MEDS: SODIUM CHLORIDE 0.9% 1,000 ML 125 ML IV ×2 (15:40→19:23)
--- NOTE | 2020-12-20 15:50 | PC.NURSE ---
Dressing changed and pressure reapplied. Patient given pain meds.
[2020-12-20] MEDS: ONDANSETRON 4 MG/2 ML INJ IV (15:57)
--- NOTE | 2020-12-20 16:07 | P.HP_ITS ---
History of Present Illness History of Present Illness Date Patient Seen: 12/20/20 Time Patient Seen: 16:07 Chief complaint: pilonidal cystectomy complications Narrative: This is a 25 yo man who had urgent surgery on 10/31 for a pilonidal cyst with abscess, followed by a second surgery on 11/11 for a progressive infection at the surgical site. He was discharged home on 11/15 and has been followed by Dr. Bower of wound care. He originally had a wound vac in the hosp ital, but was sent home with simple packing because the wound vac appeared to be masking some purulent drainage. He grew citrobacter from the wound culture from 11/11. He came in yesterday for exploration of his wound, and was seen in clinic today for recheck. He was found to have copious bleeding from the wound. I packed the wound as well as I could, and recommended that he stay for hospital admission. He felt he needed to go home and manage some things with his family before coming back to the hospital. He has now returned to the ER, and is still bleeding. The nurses have repacked the wound, and he is currently laying on it in order to have some pressure on the area and try to slow the bleeding. His hemoglobin is currently 15, but I believe that this is likely which lower once he receives fluids. ROS: denies fevers, nausea, vomiting PE: GENERAL: Pale, fatigued. Appears stated age. Answers questions appropriately. Vital signs noted. CARDIOVASCULAR: Regular rate. No pedal edema. Hypotensive with SBP 107 RESPIRATORY: Non-tachypneic, heart rate 66, breathing comfortably on room air. GASTROINTESTINAL: Abdomen soft and non-distended Sacrococcygeal area: Exam done during clinic. Dark oozing of blood from the left lateral area of tunneling, packed tightly with quarter-inch strip gauze. The patient stood up to leave the office, the gauze saturated, and we repacked it. Not reexamined in the ER because we are currently holding pressure on the wound MUSCULOSKELETAL: Equal tone and mass bilaterally. SKIN: Pale. No other lesions, rashes, or wounds. NEURO: Sleepy but arousable. Oriented X 3. No gross sensory deficits, or cognitive issues. PSYCH: Appropriate affect and mood. 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 History History of incision and drainage (11/11/20) History of surgical removal of pilonidal cyst (10/31/20) Family & Social History Social History: household members spouse,children Tobacco & Substance use: Tobacco type cigars Smoking Status Former smoker alcohol intake current alcohol intake frequency holiday/special occasion Substance Use Type does not use Meds Home Medications and Allergies Home Medications Medication Instructions Recorded Confirmed Type docusate sodium 100 mg capsule 100 mg PO BID #20 cap 10/31/20 12/20/20 Rx ibuprofen 800 mg PO Q8H PRN 10/31/20 12/20/20 History oxycodone 5 mg tablet 5 mg PO Q6H PRN #30 tab 10/31/20 12/20/20 Rx acetaminophen [Tylenol] 500 mg PO Q4H PRN 11/11/20 12/20/20 History docusate sodium 100 mg PO BID #20 cap 12/19/20 12/20/20 Rx oxycodone 5 mg PO Q6H PRN #20 tab 12/19/20 12/20/20 Rx Allergies Allergy/AdvReac Type Severity Reaction Status Date / Time Penicillins Allergy Severe Anaphylaxis Verified 12/20/20 11:23 Exam Vital Signs (past 8 hours): - 12/20/20 14:17 Temperature 98.9 F Pulse Rate 128 H Respiratory Rate 24 Blood Pressure 116/74 Pulse Oximetry 98 Oxygen Delivery Method Room Air Objective Labs Result Diagrams: 12/20/20 14:30 12/20/20 14:30 Labs: Laboratory Results - last 24 hr 12/20/20 12/20/20 14:30 14:30 WBC 12.1 H RBC 4.83 Hgb 15.0 Hct 44.2 MCV 91.5 MCH 31.1 MCHC 34.0 RDW 13.5 Plt Count 263 Neut % (Auto) 59.2 Lymph % (Auto) 32.7 [place] % (Auto) 6.5 Eos % (Auto) 1.3 L Baso % (Auto) 0.3 Neut # (Auto) 7200 H Lymph # (Auto) 4000 [place] # (Auto) 800 Eos # (Auto) 200 Baso # (Auto) 0 Sodium 140 Potassium 3.4 Chloride 105 Carbon Dioxide 20 L BUN 7 L Creatinine 0.90 Estimated GFR > 60.0 BUN/Creatinine Ratio 7.8 Glucose 101 H Calcium 10.0 Assessment & Plan Assessment and plan (1) Pilonidal abscess: Status: Acute (2) Haemorrhage postprocedure: Status: Acute (3) Delayed wound healing: Status: Acute Assessment & Plan narrative: This is a 25-year-old man with history of severe pilonidal abscess which has been operated on 3 times now. He is now bleeding, and will need to be taken to the operating room urgently, for hemostasis. Although his hemoglobin is 15, believe it is more likely close to 8 once he receives fluids. Risks and benefits of going to the operating room for hemostasis of this wound were discussed. Of ongoing bleeding, infection, damage to nearby structures, need for additional procedures were discussed. We will not try to do the definitive procedure right now is the patient is somewhat unstable and bleeding. We are just going to get hemostasis, and plan on definitive procedure at a later time, possibly tomorrow if he is stable. Plan Urgently to OR for hemostasis bleeding pilonidal wound Quality VTE Deep Vein Thrombosis/Pulmonary Embolism Present on Admission: No
--- NOTE | 2020-12-20 16:08 | PC.NURSE ---
After morphine administration patient became pale, sweaty, nauseous and diaphoretic. Dr. Willis at bedside.
[2020-12-20] MEDS: levoFLOXacin 500 MG/100 ML PIGGYBACK 100 MG IV (16:43)
[2020-12-20] MEDS: LACTATED RINGERS 1,000 ML 42 ML IV (16:43)
[2020-12-20] MEDS: metroNIDAZOLE 500 MG/100 ML PIGGYBACK 100 MG IV (16:43)
[2020-12-20] MEDS: BUPIVACAINE 0.5% W/ EPI (PF) 30 ML VIAL INJ (17:09)
--- NOTE | 2020-12-20 17:28 | PM.OP.1 ---
Operative Date/Time/Diagnoses Date of procedure: 12/20/20 Time of procedure: 17:28 Pre-op diagnosis: Active bleeding from surgical wound Post-op diagnosis: same (Active bleeding the surgical wound) Procedure & Clinicians Procedure: Wound washout, debridement, and hemostasis Same procedure as scheduled: Yes Indications: 25-year-old man with pilonidal abscess, which has had poor healing and ongoing infection. Required repeat debridement yesterday, and came in to clinic today with significant bleeding from the wound. We were not able to stop the bleeding in clinic or in the ER, and so we are bringing him into the OR for hemostasis. Surgeon: Edna Celis Anesthesia Type: General Operative Notes Findings: Large blood clot sitting in the open wound. Active bleeding from the skin edges and from the left lateral tunnelled area of the wound Specimen(s): none sent Estimated Blood Loss (mL): 30 Procedure in detail: The patient was brought into the OR. Sequential compression devices were placed on both legs and turned on. Appropriate perioperative antibiotics were given. General anesthesia was induced and the patient was intubated. The patient was turned prone onto the OR table. All bony prominences were padded. Wound vac was removed. The perianal area was prepped and draped in sterile fashion with betadine prep. Surgical timeout was conducted. The 8 cm x 5 cm wound was filled with clot and some retained packing. The packing was removed and the clot was washed out. There was active bleeding from the skin edges, and from within the tunneled area of the wound on the left buttock. Cautery was used to achieve hemostasis in these areas, with good control of bleeding. Local anesthetic was injected circumferentially into the wound using 20 mL of 0.5% Marcaine with epi. The wound was irrigated thoroughly, and inspected in all directions. There was no active bleeding from the lower tunnel or from the right lateral skin edge. There was no active bleeding from any portion of the wound at this point, and so we went ahead and packed the wound. The left lateral tunneled area, and the inferior tunneled area were packed with quarter-inch strip gauze. The remaining wound bed was packed with saline saturated gauze. There was no welling up of blood. A stack of 4x4 gauze was then used to cover the entire surgical site and secured in place with medipore tape. The patient was transferred onto his hospital bed into supine position. He was then awakened from anesthesia and extubated. Needle, sponge, and instrument counts were correct x 2. The patient was transferred to the PACU in stable condition. Complications: none Post-operative Condition: stable Disposition: PACU
--- NOTE | 2020-12-20 18:27 | SUR.PHASEI ---
Phase I: Pt with low BP, was sleeping. Stable, asymptomatic. Pt states BP is lower every time he receives pain medication. Once awake and talking, BP up to 90's to low 100's. Dressing CDI. Tolerated water and ice chips without issue. report to dayton GOLDEN. Pt taken to floor in bed with belongings.
--- NOTE | 2020-12-20 19:03 | PC.ADMIT ---
[address] [facility] [address] Admission Note:Safe hand off from Roxi GOLDEN PACU. Patient came via portable bed, VSS, Patient reporting pain 5/10, will medicate based on EMAR. Patient is alert and oriented. Dressing on coccyx is gauze w/ tape, CDI. Patient was educated about the use of call light, call light within reach, bed is low and locked. Patient is a low fall risk,SCD's applied. The patient,Rick Navarro,25 y/o, was given written information regarding hospital policies, unit procedures and contact persons. Patient's smoking status: Former smoker. Vital Signs - 8 hr 12/20/20 14:17 12/20/20 14:30 12/20/20 15:00 Temperature 98.9 F Pulse Rate 128 H 107 H 97 H Respiratory Rate 24 18 16 Blood Pressure 116/74 117/65 125/72 Pulse Oximetry 98 99 100 12/20/20 15:30 12/20/20 15:50 12/20/20 16:00 Temperature Pulse Rate 77 79 78 Respiratory Rate 17 Blood Pressure 107/58 L 87/53 L Pulse Oximetry 99 100 96 12/20/20 16:02 12/20/20 16:05 12/20/20 16:23 Temperature 97.3 F L Pulse Rate 78 75 69 Respiratory Rate 16 Blood Pressure 84/52 L 88/57 L 96/61 Pulse Oximetry 97 99 100 12/20/20 17:33 12/20/20 17:37 12/20/20 17:42 Temperature 98 F Pulse Rate 95 H 97 H 84 Respiratory Rate 12 10 L 12 Blood Pressure 88/49 L 97/41 L 87/51 L Pulse Oximetry 98 98 100 12/20/20 17:47 12/20/20 17:52 12/20/20 17:57 Temperature Pulse Rate 81 79 71 Respiratory Rate 11 L 16 14 Blood Pressure 85/58 L 82/48 L 89/54 L Pulse Oximetry 98 98 95 12/20/20 18:09 12/20/20 18:17 12/20/20 18:35 Temperature 97.9 F 97.2 F L Pulse Rate 82 71 100 H Respiratory Rate 16 14 17 Blood Pressure 100/55 L 95/57 L 117/63 Pulse Oximetry 100 98 100
[2020-12-20] MEDS: OXYCODONE IR 5 MG TABLET PO (19:24)
[2020-12-20] MEDS: ACETAMINOPHEN 325 MG TABLET 650 MG PO (19:24)
[2020-12-20] MEDS: DOCUSATE 100 MG CAPSULE PO (21:30)
[2020-12-20] MEDS: HYDROMORPHONE 0.5 MG INJ IV (23:07)
[2020-12-21] VITALS (15 sets, daily range): BP systolic 92–114; BP diastolic 47–78; PULSE 63–84; RESP 13–19; TEMP 36.2–36.8; O2SAT 97–100; BMI 24.4
[2020-12-21] MEDS: OXYCODONE IR 5 MG TABLET PO ×3 (02:25→18:31)
[2020-12-21] MEDS: SODIUM CHLORIDE 0.9% 1,000 ML 125 ML IV (04:09)
[2020-12-21 04:13] LABS: Add Manual Diff / Slide Review NO; Basophils Absolute Auto 0 /uL (0-100); Basophils Percent Auto 0.6 % (0-2); Eosinophils Absolute Auto 200 /uL (0-450); Eosinophils Percent Auto 2.7 % (2-4); Hematocrit 35.2 % (41-53); Hemoglobin 11.8 g/dL (13.5-17.5); Lymphocytes Absolute Auto 2500 /uL (1100-4500); Lymphocytes Percent Auto 38.1 % (25-40); Mean Corpuscular HGB Conc 33.4 % (30-36); Mean Corpuscular Hemoglobin 31.1 PG (26-34); Monocytes Absolute Auto 500 /uL (0-900); Monocytes Percent Auto 6.9 % (3-14); Neutrophils Absolute Auto 3400 /uL (1500-7000); Neutrophils Percent Auto 51.7 % (50-75); Platelet Count 172 X10^3/uL (150-400); Red Blood Cell Count 3.78 X10^6/uL (4.5-5.9); Red Cell Distribution Width 13.4 % (11.6-14.8); White Blood Cell Count 6.6 X10^3/uL (4.5-11.0)
[2020-12-21 04:21] LABS: BUN Creatinine Ratio 10.2 (6-22); Blood Urea Nitrogen 9 mg/dL (9-20); Calcium 8.3 mg/dL (8.4-10.2); Carbon Dioxide 27 mmol/L (22-32); Chloride 105 mmol/L (98-107); Estimated Glomerular Filt Rate > 60.0 mL/min (>60); Glucose 95 mg/dL (70-100); HEMOLYSIS 21 (0-50); Magnesium 1.6 mg/dL (1.6-2.3); Potassium 3.6 mmol/L (3.4-5.1); Sodium 136 mmol/L (137-145)
--- NOTE | 2020-12-21 05:26 | PC.NURSE ---
Pt BP low, highest 97/53. Dressing w/ minor seepage. Provider made aware, ordered 1 L NS bolus.
[2020-12-21] MEDS: SODIUM CHLORIDE 0.9% 1,000 ML 1000 ML IV (05:45)
[2020-12-21] MEDS: DOCUSATE 100 MG CAPSULE PO ×2 (07:50→20:42)
[2020-12-21] MEDS: MAGNESIUM SULFATE 2 GM/50 ML PIGGYBACK IV (08:20)
--- NOTE | 2020-12-21 09:52 | PM.PREOP ---
Pre-operative Note COVID-19 COVID-19 status: Negative Result date/Date tested (Pos, Neg/Pending): 12/20/20 Interval Note History & Physical reviewed/Exam performed by Physician: Yes Changes to H&P: Yes H&P completed within 30 days and has changed as indicated here:: Pt taken to OR last evening for hemostasis of bleeding wound. Will need second look under anesthesia today. Risks and benefits of surgery were discussed including bleeding, infection, damage to local structures, need for additional procedures, prolonged hospital stay, delayed healing. The patient desires to proceed with surgery.
--- NOTE | 2020-12-21 10:43 | DIET.PN ---
Dietary Progress Note RD note for pt with poor healing wound requiring multiple surgical procedures. Kitchen sending ONS Ry bid to support wound healing.
--- NOTE | 2020-12-21 10:48 | CM.DPNOTE ---
[facility] [phone] and said they are following this pt. Please contact them when discharged. Pauline Ocampo CM Asst.
[2020-12-21] MEDS: LACTATED RINGERS 1,000 ML 42 ML IV (12:31)
[2020-12-21] MEDS: levoFLOXacin 500 MG/100 ML PIGGYBACK 100 MG IV (13:20)
[2020-12-21] MEDS: metroNIDAZOLE 500 MG/100 ML PIGGYBACK 100 MG IV (13:35)
[2020-12-21] MEDS: BUPIVACAINE 0.5% W/ EPI (PF) 30 ML VIAL INJ (13:56)
--- NOTE | 2020-12-21 14:48 | PM.OP.1 ---
Operative Date/Time/Diagnoses Date of procedure: 12/21/20 Time of procedure: 14:48 Pre-op diagnosis: Delayed wound healing, bleeding pilonidal wound Post-op diagnosis: same Procedure & Clinicians Procedure: Wound washout, hemostasis, dressing change Same procedure as scheduled: Yes Indications: 25-year-old man with pilonidal abscess, which has had poor healing bleeding. Required repeat debridement two days ago and came back in with bleeding yesterday. He was brought back to the OR today for a second look and dressing change under anesthesia. Surgeon: Edna Celis Anesthesia Type: General Operative Notes Findings: Small amount of oozing around the skin edges, minimal blood pooling or clots in the wound Specimen(s): none sent Estimated Blood Loss (mL): 30 Procedure in detail: The patient was brought into the OR. Sequential compression devices were placed on both legs and turned on. Appropriate perioperative antibiotics were given. General anesthesia was induced and the patient was intubated. The patient was turned prone onto the OR table. All bony prominences were padded. Wound vac was removed. The perianal area was prepped and draped in sterile fashion with betadine prep. Surgical timeout was conducted. The 8 cm x 5 cm wound was unpacked. There was a small amount of active bleeding from the skin edges. The wound appeared clean. Local anesthetic was injected circumferentially into the wound using 20 mL of 0.5% Marcaine with epi. The wound was irrigated thoroughly, and inspected in all directions. Hemostasis was obtained using cautery, and the wound was packed with lidocaine soaked gauze. The left lateral tunneled area, and the inferior tunneled area were packed with quarter-inch strip gauze. The remaining wound bed was packed with saline saturated gauze. There was no welling up of blood. A stack of 4x4 gauze was then used to cover the entire surgical site and secured in place with medipore tape. The patient was transferred onto his hospital bed into supine position. He was then awakened from anesthesia and extubated. Needle, sponge, and instrument counts were correct x 2. The patient was transferred to the PACU in stable condition. Complications: none Post-operative Condition: stable Disposition: PACU
--- NOTE | 2020-12-21 15:59 | CM.DANOTE ---
Patient is a 25 yo male who was admitted on 12/20/20 for Cystectomy complications. Pt has [employer] for insurance and his PCP is Hina Jernigan. EMR was reviewed. Per MD, pt now with third surgical intervention from abscess needing I&D and now with significant ongoing bleeding and need for surgical intervention. Per Surgeon, pt also to have additional surgical intervention around 1245. 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 He admitted to care of [facility]: Dr. Joao Cameron initially and was taken to OR for I&D of infected pilonidal cyst and a negative pressure wound vac was placed during the surgical process but was able to d/c without vac needed. Pt is with infant at home and spouse has not typically been able to be bedside due to infant. Pt was here on 10/31 for outpt surgery for initial I&D of this cyst and admitted now after increasing pain and foul drainage s/p that surgery. Pt now getting surgical intervention from Dr. Celis and has outpt Dr. Duran and [facility]. 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 Plan: SW to follow for likely home with spouse and Resume [facility] at baseline. SW to follow after surgery today towards identifying further identified d/c needs. SHAMIR Moraes Discharge Planning/Care Management CM Discharge Assessment Start: 12/21/20 15:58 Freq: Status: Active Protocol: Document 12/21/20 15:58 BF (Rec: 12/21/20 15:59 BF [id number]) Discharge Planning Assessment Assigned Accessioner SHAMIR Torres DPOA/Assigned Designee Name informally spouse Advance Directives? No Advance Directives on File No History Provided By Patient,Medical Record Has Patient been admitted in last 30 No days? Prior Living Arrangements Apartment/Condo Household Members spouse,children Type of transporation used prior to Drives own vehicle admit Independent with ADL's Yes Is patient alert and oriented? 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
--- NOTE | 2020-12-21 16:39 | PC.NURSE ---
Addendum entered by Chasity Marie R.N. 12/21/20 23:26: Pt reports good pain relief with oxycodone and tylenol. Rates pain 3/10. Tape reinforced to dry and intact dressing. Addendum entered by Chasity Marie R.N. 12/21/20 18:52: Pt now on right side in bed. Requests iv pain medications for pain 5/10. Per orders for pain management, administered oxycodone and tylenol and informed pt if this doesn't improve pain will discuss iv option for pain meds. Pt verbalizes understanding and agreement. Original Note: Pt lying in bed on left side awake, alert, conversant. Reports soreness to buttocks 3/10 and was encouraged to request pain medications as needed. Pt acknowledges agreement and understanding. BL calf scd's in place. Dressing to buttocks is dry and intact. Pt denies nausea and has taken yogurt po as well as oral fluids without difficulty. Room air with oxygen levels in upper 90's per continuous monitor.
[2020-12-21] MEDS: ACETAMINOPHEN 325 MG TABLET 650 MG PO (18:32)
[2020-12-21] MEDS: SODIUM CHLORIDE 0.9% FLUSH 10 ML IV (20:43)
[2020-12-22 05:14] VITALS: BP 109/66; PULSE 66; RESP 16; TEMP 36.1; O2SAT 99
[2020-12-22 05:35] LABS: Add Manual Diff / Slide Review NO; BUN Creatinine Ratio 10.6 (6-22); Basophils Absolute Auto 0 /uL (0-100); Basophils Percent Auto 0.5 % (0-2); Blood Urea Nitrogen 9 mg/dL (9-20); Calcium 8.9 mg/dL (8.4-10.2); Carbon Dioxide 29 mmol/L (22-32); Chloride 102 mmol/L (98-107); Eosinophils Absolute Auto 200 /uL (0-450); Eosinophils Percent Auto 2.6 % (2-4); Estimated Glomerular Filt Rate > 60.0 mL/min (>60); Glucose 89 mg/dL (70-100); HEMOLYSIS < 15 (0-50); Lymphocytes Absolute Auto 2700 /uL (1100-4500); Lymphocytes Percent Auto 41.3 % (25-40); Mean Corpuscular HGB Conc 33.4 % (30-36); Mean Corpuscular Hemoglobin 31.1 PG (26-34); Mean Corpuscular Volume 93.3 fL (80-100); Monocytes Absolute Auto 400 /uL (0-900); Monocytes Percent Auto 6.8 % (3-14); Neutrophils Absolute Auto 3200 /uL (1500-7000); Neutrophils Percent Auto 48.8 % (50-75); Platelet Count 201 X10^3/uL (150-400); Potassium 4.1 mmol/L (3.4-5.1); Red Blood Cell Count 4.18 X10^6/uL (4.5-5.9); Red Cell Distribution Width 13.3 % (11.6-14.8); Sodium 136 mmol/L (137-145); White Blood Cell Count 6.5 X10^3/uL (4.5-11.0)
[2020-12-22] MEDS: OXYCODONE IR 5 MG TABLET PO (06:13)
--- NOTE | 2020-12-22 07:38 | P.DS_ITS ---
History of Present Illness History of Present Illness Chief complaint: pilonidal cystectomy complications Narrative: This is a 25 yo man who had urgent surgery on 10/31 for a pilonidal cyst with abscess, followed by a second surgery on 11/11 for a progressive infection at the surgical site. He was discharged home on 11/15 and has been followed by Dr. Bower of wound care. He originally had a wound vac in the [facility], but was sent home with simple packing because the wound vac appeared to be masking some purulent drainage. He grew citrobacter from the wound culture from 11/11. He came in yesterday for exploration of his wound, and was seen in clinic today for recheck. He was found to have copious bleeding from the wound. I packed the wound as well as I could, and recommended that he stay for hospital admission. He felt he needed to go home and manage some things with his family before coming back to the hospital. He has now returned to the ER, and is still bleeding. The nurses have repacked the wound, and he is currently laying on it in order to have some pressure on the area and try to slow the bleeding. His hemoglobin is currently 15, but I believe that this is likely which lower once he receives fluids. ROS: denies fevers, nausea, vomiting PE: GENERAL: Pale, fatigued. Appears stated age. Answers questions appropriately. Vital signs noted. CARDIOVASCULAR: Regular rate. No pedal edema. Hypotensive with SBP 107 RESPIRATORY: Non-tachypneic, heart rate 66, breathing comfortably on room air. GASTROINTESTINAL: Abdomen soft and non-distended Sacrococcygeal area: Exam done during clinic. Dark oozing of blood from the left lateral area of tunneling, packed tightly with quarter-inch strip gauze. The patient stood up to leave the office, the gauze saturated, and we repacked it. Not reexamined in the ER because we are currently holding pressure on the wound MUSCULOSKELETAL: Equal tone and mass bilaterally. SKIN: Pale. No other lesions, rashes, or wounds. NEURO: Sleepy but arousable. Oriented X 3. No gross sensory deficits, or cognitive issues. PSYCH: Appropriate affect and mood. Discharge Providers Provider Date of admission: 12/20/20 15:59 Discharge Date: 12/22/20 Primary care physician: Hina Jernigan MD Consults: 12/20/20 18:40 Consult to Discharge Planning Routine Comment: Discharge provider: Edna Celis MD Summary Hospital Course Discharge Diagnosis: Postoperative bleed Hospital Course: Patient was admitted through the ER with copious blood coming from his pilonidal excision wound. He was taken directly to the operating room where hemostasis was achieved in the wound was packed. We brought him back the next day for a 2nd look to ensure the bleeding was controlled and to repack the wound. Today I change the wound packing at the bedside to assure he could tolerate a dressing change while awake, and to ensure that no further bleeding had occurred that would have to be controlled in the operating room. Status at Discharge Cognitive/behavioral status at discharge: oriented Functional status at discharge: independent ambulation Overall status at discharge: patient is progressing back to baseline Time Spent with Patient Time spent: Greater than 30 minutes Exam Vital Signs (past 8 hours): - 12/21/20 23:39 12/21/20 23:40 12/22/20 05:14 Temperature 97.7 F 97.0 F L Pulse Rate 69 73 66 Respiratory Rate 16 14 16 Blood Pressure 94/54 L 109/66 Pulse Oximetry 100 97 99 Oxygen Delivery Method Room Air Oxygen Flow Rate 0 Narrative Exam Narrative: GENERAL: Well groomed and cooperative. Appears stated age. Answers questions promptly and appropriately. Vital signs noted. HENT: Normocephalic, atraumatic. Hearing intact. EYES: Conjunctiva pink, sclera white, no periorbital swelling. CARDIOVASCULAR: Regular rate. No pedal edema. RESPIRATORY: Non-tachypneic, breathing comfortably on room air. GASTROINTESTINAL: Abdomen soft and non-distended Sacrococcygeal area: 6 cm x 8 cm open wound with tunneling under the left buttock and anterior to the rectum. Lidocaine saturated gauze was removed and replaced during the exam. No bleeding was seen MUSCULOSKELETAL: Equal tone and mass bilaterally. SKIN: Warm, dry, soft, appropriate color for ethnicity. No other lesions, rashes, or wounds. NEURO: Alert and Oriented X 3. No gross sensory deficits, or cognitive issues. PSYCH: Appropriate affect and mood. Objective Labs Result Diagrams: 12/22/20 04:50 12/22/20 04:50 Labs: Laboratory Results - last 24 hr 12/22/20 12/22/20 04:50 04:50 WBC 6.5 RBC 4.18 L Hgb 13.0 L Hct 39.0 L MCV 93.3 MCH 31.1 MCHC 33.4 RDW 13.3 Plt Count 201 Neut % (Auto) 48.8 L Lymph % (Auto) 41.3 H Harris % (Auto) 6.8 Eos % (Auto) 2.6 Baso % (Auto) 0.5 Neut # (Auto) 3200 Lymph # (Auto) 2700 Harris # (Auto) 400 Eos # (Auto) 200 Baso # (Auto) 0 Sodium 136 L Potassium 4.1 Chloride 102 Carbon Dioxide 29 BUN 9 Creatinine 0.85 Estimated GFR > 60.0 BUN/Creatinine Ratio 10.6 Glucose 89 Calcium 8.9 Magnesium 2.0 [facility] Medical History History of recent hospitalization 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 He will see Dr. Kearney tomorrow in clinic for a wound packing change, and will see me on Saturday in clinic for wound packing change. See Dr. Bower on Saturday, we will attempt to get home health set back up for him. Once the tunneling has scar down, we will consider a re-attempt of the wound VAC. Discharge Plan Discharge Plan Patient Disposition: Home Provider Discharge Comment: You will see Dr. Kearney tomorrow 12/23 at 2:45PM, and you will see me on Tuesday 12/26 at 11AM at the [facility] office. Because Saturday is a holiday, there will be no office staff that day. If the office is not open when you arrive, please wait a few minutes and I will be there by 11AM to let you in. Keep your dressings in place, and reinforce with tape as needed. If the dressing becomes saturated with blood, apply pressure by lying on the wound, and come in to the ER. If the outer dressing becomes wet or soiled, you may remove the outer gauze and replace with clean gauze and secure with tape. You may cover the entire dressing with a large occlusive dressing or plastic sheet in order to shower. After showering, replace the outer dressing with a dry gauze dressing and secure again with tape. Call [facility] office number if you have concerns or questions. If it is after hours or on the weekend/holiday please listen to the answering message and choose the option to speak with the doctor construction teacher. Discharge orders & Medications Prescriptions: Continued oxycodone 5 mg tablet 5 mg PO Q6H PRN (Reason: post operative pain) Qty: 30 RF: 0 docusate sodium 100 mg capsule 100 mg PO BID Qty: 20 RF: 0 ibuprofen 800 mg Tablet 800 mg PO Q8H PRN (Reason: Pain (Scale Score 7-10)) RF: 0 acetaminophen [Tylenol] 325 mg Capsule 500 mg PO Q4H PRN (Reason: Pain (Scale Score 1-3)) RF: 0 oxycodone 5 mg tablet 5 mg PO Q6H PRN (Reason: post operative pain) Qty: 20 RF: 0 docusate sodium 100 mg capsule 100 mg PO BID Qty: 20 RF: 0 Follow up/Referrals: Hina Jernigan MD [Primary Care Provider] - Win Kearney MD [Physician] - (Appointment at [facility] on 12/23 as scheduled) Edna Celis MD [Physician] - (Appointment at [facility] on 12/26 at 11AM) Diet/Activity/Treatments Diet: Diet as Tolerated Skin/Wound/Dressing Care Report to your healthcare provider any signs of infection, such as:: chills, fev er, night sweats, increased pain, unusual drainage and unusual redness Visit Report/Discharge Packet Instructions: DI for Pilonidal Cyst Drainage or Removal, DI for Prescription Opioid Use, [facility]: Wound Care Stand Alone Forms: Surgery Discharge Discharge Data Primary Care Provider: Hina Jernigan Quality VTE Deep Vein Thrombosis/Pulmonary Embolism Present on Admission: No
[2020-12-22] MEDS: DOCUSATE 100 MG CAPSULE PO (09:07)
[2020-12-22] MEDS: ACETAMINOPHEN 325 MG TABLET 650 MG PO (09:10)
--- NOTE | 2020-12-23 15:12 | CM.DPNOTE ---
DC Note Late Entry DC order placed yesterday; according to Dr Celis and nursing team, no needs from this ASSESSMENT NURSE PRACTITIONER. Later reviewed Dr Celis's DC Summary w/Yazmin Quinones, wound care. Yazmin appreciative and states the wound care clinic is familiar w/patient and will continue to follow, no coordination from this ASSESSMENT NURSE PRACTITIONER needed. According to Dr Celis's DC Summary: Plan of Treatment: Patient is being discharged home with wound packing in place. He will see Dr. Kearney tomorrow in clinic for a wound packing change, and will see me on Saturday in clinic for wound packing change. See Dr. Bower on Saturday, we will attempt to get home health set back up for him. Once the tunneling has scar down, we will consider a re-attempt of the wound VAC. Plan: DC home w/spouse/family w/close outpatient f/u recommended JW
--- NOTE | 2020-12-28 09:16 | CM.DPNOTE ---
Late entry, Faxed DC sum and OP note to [facility] per their request. They were following patient before hospitalization. Pauline Ocampo CM Asst.
== END 2020-12-22 11:20 | disposition home or self-care (01) | DRG 908 ==
LOC: ED 15:01 → AC 16:01
PROVIDERS: Admitting Provider Surgery; Emergency Provider Emergency Medicine; PCP Student in an Organized Health Care Education/Training Program; Referring Provider Emergency Medicine; Visit Provider Surgery
PROC: 0W3L0ZZ Control Bleeding in Lower Back, Open Approach (ICD-10-PCS; principal; 2020-12-20 16:15)
PROC: 2W05X6Z Change Pressure Dressing on Back (ICD-10-PCS; principal; 2020-12-21 12:45)
DX: L76.22 Postprocedural hemorrhage of skin and subcutaneous tissue following other procedure (principal); L05.01 Pilonidal cyst with abscess; Z20.822 Contact with and (suspected) exposure to COVID-19
CPT/HCPCS: 36415; 80048; 83735; 85025; 86850; 86900; 86901; 87635; 96361; 96374; 96375; 99284; J0330; J1100; J1170; J1956; J2250; J2270; J2405; J2704; J3010; J3475

== ENCOUNTER → 2020-12-28 11:44 | Outpatient (CLI) | payer OTHER, SELFPAY ==
[2020-12-20 18:42] VITALS: BMI 24.4
== END ==
PROVIDERS: PCP Student in an Organized Health Care Education/Training Program; Referring Provider Student in an Organized Health Care Education/Training Program; Visit Provider Family Medicine
DX: S31.819A Unspecified open wound of right buttock, initial encounter (principal); S31.829A Unspecified open wound of left buttock, initial encounter; L08.9 Local infection of the skin and subcutaneous tissue, unspecified
CPT/HCPCS: 11042; 87070; 87075; 87077; 87147; 87186; 87205; 99214

== ENCOUNTER → 2021-01-03 10:47 | Outpatient (CLI) | payer OTHER, SELFPAY ==
[2020-12-20 18:42] VITALS: BMI 24.4
== END ==
PROVIDERS: PCP Student in an Organized Health Care Education/Training Program; Referring Provider Student in an Organized Health Care Education/Training Program; Visit Provider Family Medicine
DX: S31.819A Unspecified open wound of right buttock, initial encounter (principal); S31.829A Unspecified open wound of left buttock, initial encounter; L08.9 Local infection of the skin and subcutaneous tissue, unspecified; B95.61 Methicillin susceptible Staphylococcus aureus infection as the cause of diseases classified elsewhere
CPT/HCPCS: 11042; 97607; 99214

== ENCOUNTER → 2021-01-10 15:29 | Outpatient (CLI) | payer OTHER, SELFPAY ==
[2020-12-20 18:42] VITALS: BMI 24.4
== END ==
PROVIDERS: PCP Student in an Organized Health Care Education/Training Program; Referring Provider Student in an Organized Health Care Education/Training Program; Visit Provider Family Medicine
DX: S31.000A Unspecified open wound of lower back and pelvis without penetration into retroperitoneum, initial encounter (principal)
CPT/HCPCS: 11042; 97605; 99212

== ENCOUNTER → 2021-01-18 10:35 | Outpatient (CLI) | payer OTHER, SELFPAY ==
[2020-12-20 18:42] VITALS: BMI 24.4
== END ==
PROVIDERS: PCP Student in an Organized Health Care Education/Training Program; Referring Provider Surgery; Visit Provider Nurse Practitioner Family
DX: S31.819A Unspecified open wound of right buttock, initial encounter (principal); S31.829A Unspecified open wound of left buttock, initial encounter
CPT/HCPCS: 97597; 99213

== ENCOUNTER → 2021-01-25 15:05 | Outpatient (CLI) | payer OTHER, SELFPAY ==
[2020-12-20 18:42] VITALS: BMI 24.4
== END ==
PROVIDERS: PCP Student in an Organized Health Care Education/Training Program; Referring Provider Surgery; Visit Provider Family Medicine
DX: S31.819A Unspecified open wound of right buttock, initial encounter (principal); S31.829A Unspecified open wound of left buttock, initial encounter
CPT/HCPCS: 17250

== ENCOUNTER → 2021-02-01 10:59 | Outpatient (CLI) | payer OTHER, SELFPAY ==
[2020-12-20 18:42] VITALS: BMI 24.4
== END ==
PROVIDERS: PCP Student in an Organized Health Care Education/Training Program; Referring Provider Surgery; Visit Provider Family Medicine
DX: S31.819D Unspecified open wound of right buttock, subsequent encounter (principal); S31.829D Unspecified open wound of left buttock, subsequent encounter
CPT/HCPCS: 99212; 99213